=== PATIENT | female | born 1950 | race Caucasian/White ===

== ENCOUNTER 2017-12-11 20:08 | Observation (INO) ==
[2017-12-11] MEDS ORDERED: Metoclopramide 10 MG/2 ML VIAL IVP ONE (20:38)
[2017-12-11] MEDS ORDERED: 0.9 % Sodium Chloride 1,000 ML IVC ONE (20:38)
--- NOTE | 2017-12-11 20:49 | Emergency Department Note ---
Disposition Clinical Impression: Chest pain, rule out acute myocardial infarction Headache Qualifiers: Headache type: unspecified Headache chronicity pattern: acute headache Intractability: intractable Qualified Code(s): R51 - Headache Disposition: Admitted As Inpatient Condition: Good Time of Disposition: 20:52 Chest Pain HPI - General Chief Complaint: ED Chest Pain Stated Complaint: "chest heaviness", facial numbness x 24h, "ill" Time Seen by Provider: 12/11/17 20:21 Source: patient, EMS Limitations: no limitations Vital Signs Reviewed: Yes Nursing Notes Reviewed: Yes - History of Present Illness HPI Narrative: 67-year-old female brought to the emergency department for concerns of chest pain, headache. Patient states headache is been present over the past 3 days and is similar in intensity but different in location compared to her previous migraines. No recent trauma. Patient reports drooping of the right lower face as well as paresthesias of the right lower face over the past 24 hours. Daughter first noticed these symptoms yesterday evening but we do not have an exact time of onset. Patient is ambulating well and has no other focal neurologic deficits. Patient takes aspirin and Plavix after a coronary artery bypass graft many years ago, no history of stenting. Patient states she developed chest pain this morning which feels similar to chest pain prior to her coronary artery bypass graft. She states it as a pressure in the center of her chest that does not radiate. It is intermittently associated with diaphoresis but no nausea or shortness of breath. Patient has not syncopized. No changes in her medications. Severity scale (1-10): 10 - Related Data Home Medications Medication Instructions Recorded Confirmed Amlodipine [Norvasc] 5 mg PO DAILY 05/19/15 08/09/16 Clopidogrel [Plavix] 75 mg PO QAM 05/19/15 08/09/16 Escitalopram [Lexapro] 20 mg PO QAM 05/19/15 08/09/16 Levothyroxine [Synthroid] 50 mcg PO QAM 05/19/15 08/09/16 Doxepin [Sinequan] 50 mg PO HS 02/02/16 08/09/16 Fenofibrate [Lofibra] 160 mg PO DAILY 02/02/16 08/09/16 Furosemide [Lasix] 40 mg PO DAILY 02/02/16 08/09/16 Lisinopril [Zestril] 40 mg PO DAILY 02/02/16 08/09/16 Nitroglycerin 0.4 mg SL Q5MIN PRN 02/02/16 08/09/16 Omeprazole [PriLOSEC] 20 mg PO DAILY 02/02/16 08/09/16 Potassium Chloride 20 meq PO DAILY 02/02/16 08/09/16 clonazePAM [Klonopin] 1 mg PO TID 02/02/16 08/09/16 Atorvastatin [Lipitor] 80 mg PO HS 06/13/16 08/09/16 Cyanocobalamin (Vitamin B-12) 1,000 mcg PO DAILY 06/13/16 08/09/16 [Vitamin B12] HYDROcodone/Acet 5/325 mg [[place] 1 tab PO Q6H PRN 08/09/16 08/09/16 5-325 mg] Metoprolol [Lopressor] 50 mg PO BID 08/09/16 08/09/16 Ranolazine [Ranexa] 1,000 mg PO BID 08/09/16 08/09/16 Previous Rx's Medication Instructions Recorded Docusate [Colace] 100 mg PO BID PRN #0 capsule 06/15/16 OxyCODONE/APAP 5/325 [Percocet 1 each PO Q6HR PRN #16 tablet 10/06/16 5/325 MG] Ondansetron ODT [Zofran ODT] 4 mg SL Q6HR #14 tab.rapdis 11/16/16 Hyoscyamine SL [Levsin SL] 0.125 mg SL Q4HR #12 tab.subl 12/30/16 Allergies Allergy/AdvReac Type Severity Reaction Status Date / Time sumatriptan [From Imitrex] Allergy Severe Unconscious Verified 06/28/17 13:36 Penicillins Allergy Mild Hives Verified 06/28/17 13:36 morphine AdvReac Intermediate Insomnia Verified 06/28/17 13:36 tramadol AdvReac Intermediate Nausea Verified 06/28/17 13:36 ibuprofen AdvReac Mild See Verified 06/28/17 13:36 Comments ketorolac [From Toradol] AdvReac Mild Nausea Verified 06/28/17 13:36 All systems ED: reviewed and negative except as stated. Review of Systems: As Per HPI Chest Pain PMH - Past Medical History Medical history: Reports: coronary artery disease, GERD, hyperlipidemia, hypertension, myocardial infarction, renal disease, TIA, other Surgical history: Reports: angioplasty/stent, cholecystectomy, coronary bypass ( CABG), hysterectomy, knee replacement, other Psychiatric history: Reports: anxiety, depression, panic disorder, other [employer] history: Reports: non-contributory - Social History Smoking Status: Never smoker Alcohol use: Reports: none Drug use: Reports: none Physical Exam General: Alert and in no acute distress Skin: Warm, dry, intact Head: Normocephalic and atraumatic Neck: Supple, trachea midline and no tenderness Cardiovascular: RRR, no murmur, normal perfusion Respiratory: CTAB, no wheezing, cough, or respiratory distress Musculoskeletal: Normal strength, no tenderness, swelling or deformity GI: Soft, nontender, nondistended. Bowel sounds present Neuro: A&O to person, place, time and situation. Patient had subjective paresthesias to the right lower face otherwise there were no focal neurologic deficits noted on exam. Upper and lower extremities were equal strength at 5 out of 5 bilaterally. Psychiatric: cooperative and appropriate mood and affect. - General Limitations: no limitations General appearance: alert, in no apparent distress Course Vital Signs Temperature 98.1 F 12/11/17 20:11 Pulse Rate 79 12/11/17 20:11 Respiratory Rate 18 12/11/17 20:11 Blood Pressure 152/85 12/11/17 20:11 O2 Sat by Pulse Oximetry 100 12/11/17 20:11 Temperature 98.1 F 12/11/17 20:11 Pulse Rate 72 12/11/17 22:07 Respiratory Rate 16 12/11/17 22:07 Blood Pressure 134/78 12/11/17 22:07 O2 Sat by Pulse Oximetry 95 12/11/17 22:07 Oxygen Delivery Oxygen Delivery Room Air Chest Pain - MDM Narrative Medical decision making narrative: Patient will be admitted for further evaluation of her chest pain as she has high risk factors with heart score 5. Patient was given multiple medications for control of her headache without significant improvement. Patient states that the headache is different from her previous headaches and thus I am concerned for possible subarachnoid hemorrhage. CT of the head was negative for acute cranial hemorrhage or mass. I attempted a lumbar puncture after discussion of risks and benefits with the patient and obtaining verbal and written consent. I was unsuccessful in my lumbar puncture and patient refused further attempts. I spoke with Dr. Maldonado regarding the patient's case and presentation and my inability to completely rule out subarachnoid hemorrhage. He agreed with the plan for admission to the hospital for further evaluation of headache as well as chest pain and he will see her in the morning. Initial EKG showed normal sinus rhythm with a rate of 77 without evidence of STEMI or other evidence of ischemia. Initial troponin was negative. Patient comfortable with the plan for admission to hospital. - Medical Records Medical records reviewed: Yes I reviewed the patient's medical records. - Lab Data Lab results reviewed: Yes I reviewed the patient's lab results. Result diagrams: 12/11/17 20:45 12/11/17 20:45 Lab Results 12/11/17 12/11/17 12/11/17 Range/Units 20:45 20:45 20:45 WBC 4.9 (4.3-11.1) K/mcL RBC 4.25 (3.82-4.97) M/mcL Hgb 12.7 (11.5-15.4) g/dL Hct 38.9 (35.3-44.9) % MCV 91.5 (83.0-100.0) fL MCH 29.9 (28.0-33.3) pg MCHC 32.6 (31.6-35.5) g/dL RDW 14.3 (11.5-14.5) % Plt Count 327 (140-400) K/mcL MPV 9.9 (9.4-12.4) fL Immature Gran % 1.2 (0-4) % Seg Neutrophils % 53.5 % Lymphocytes % 30.8 % Monocytes % 12.7 % Eosinophils % 1.2 % Basophils % 0.6 % Neutrophils # 2.6 (1.6-8.9) K/mcL Lymphocytes # 1.5 (0.6-4.6) K/mcL Monocytes # 0.6 (0.0-1.3) K/mcL Eosinophils # 0.1 (0.0-0.6) K/mcL Basophils # 0.0 (0.0-0.2) K/mcL PT 11.8 (9.4-12.1) Seconds INR 1.1 APTT 32.6 (26.0-36.0) Seconds Sodium 138 (136-145) mEq/L Potassium 3.7 (3.5-5.1) mEq/L Chloride 108 H (98-107) mEq/L Carbon Dioxide 22 L (23-29) mEq/L BUN 12 (8-23) mg/dL Creatinine 0.89 (0.60-1.20) mg/dL Est GFR ( Amer) > 60 (> 60) Est GFR (Non-Af Amer) > 60 (> 60) BUN/Creatinine Ratio 13 (6-26) Glucose 105 (70-105) mg/dL Calculated Osmolality 286 (280-300) Calcium 9.3 (8.6-10.3) mg/dL Troponin I < 0.03 (< 0.04) ng/mL - Radiology Data Radiology results reviewed: Yes I reviewed the patient's radiology results. - EKG Data EKG attestation: Yes I reviewed and interpreted this EKG. EKG results narrative: ECG - interpreted by ED physician. Rate 77, normal sinus rhythm, no STEMI, ND, QT intervals, and QRS within normal limits Heart Score - Score History: Moderately Suspicious EKG: Normal Age: Greater than 65 Risk Factors: Equal/Greater than 3 risk factor or history of atherosclerotic disease Troponin: Less than normal limit HEART Score Total: 5
[2017-12-11 20:54] LABS: Basophils % 0.6 %; Eosinophils # 0.1 K/mcL (0.0-0.6); Eosinophils % 1.2 %; Hematocrit 38.9 % (35.3-44.9); Hemoglobin 12.7 g/dL (11.5-15.4); Immature Granulocytes % 1.2 % (0-4); Lymphocytes # 1.5 K/mcL (0.6-4.6); Lymphocytes % 30.8 %; Mean Corpuscular HGB Conc 32.6 g/dL (31.6-35.5); Mean Corpuscular Hemoglobin 29.9 pg (28.0-33.3); Mean Corpuscular Volume 91.5 fL (83.0-100.0); Mean Platelet Volume 9.9 fL (9.4-12.4); Monocytes # 0.6 K/mcL (0.0-1.3); Monocytes % 12.7 %; Neutrophils # 2.6 K/mcL (1.6-8.9); Platelet Count 327 K/mcL (140-400); Red Blood Count 4.25 M/mcL (3.82-4.97); Red Cell Distribution Width 14.3 % (11.5-14.5); Segmented Neutrophils % 53.5 %
[2017-12-11 20:59] LABS: INR 1.1; Prothrombin Time 11.8 Seconds (9.4-12.1)
[2017-12-11 21:02] LABS: Activated Partial Thrombo Time 32.6 Seconds (26.0-36.0)
[2017-12-11 21:23] LABS: Troponin I < 0.03 ng/mL (< 0.04)
[2017-12-11 21:25] LABS: BUN/Creatinine Ratio 13 (6-26); Blood Urea Nitrogen 12 mg/dL (8-23); Calcium 9.3 mg/dL (8.6-10.3); Carbon Dioxide 22 mEq/L (23-29); Chloride 108 mEq/L (98-107); Glucose 105 mg/dL (70-105); Osmolality,Calculated 286 (280-300); Potassium 3.7 mEq/L (3.5-5.1); Sodium 138 mEq/L (136-145); eGFR For African Americans > 60 (> 60); eGFR For Non-African Americans > 60 (> 60)
[2017-12-11] MEDS ORDERED: Acetaminophen/Butalbital/CaffeineTABLET PO STA (22:31)
[2017-12-11] MEDS ORDERED: Dexamethasone 4 MG/ML VIAL IVP ONE (22:31)
[2017-12-11] MEDS ORDERED: Aspirin 81 MG TAB.CHEW PO ONE (23:42)
[2017-12-11] MEDS ORDERED: diazePAM 10 MG/2 ML SYRINGE IVP ONE (23:56)
--- NOTE | 2017-12-11 23:59 | Internal Med History&Physical ---
Date of Encounter: 12/12/17 Time of Encounter: 23:55 Assessment and Plan (1) Chest pain, rule out acute myocardial infarction Current visit: Yes Status: Acute Persistent chest pain since the morning EKG is unremarkable troponin so far is negative will trend troponin and scheduled for nuclear stress test in a.m. (2) Headache Current visit: Yes Status: Acute Patient has history of migraine headache now with persistent headache for about 3 days or consult neurology for further evaluation CT of the head so far negative Qualifiers: Headache type: unspecified Headache chronicity pattern: acute headache Intractability: not intractable Qualified Code(s): R51 - Headache (3) CAD (coronary artery disease) Current visit: No Status: Chronic History of CABG Qualifiers: Coronary Disease-Associated Artery/Lesion type: [place] artery [place] vs. transplanted heart: [place] heart Associated angina: with unstable angina Qualified Code(s): I25.110 - Atherosclerotic heart disease of [place] coronary artery with unstable angina pectoris (4) HTN (hypertension) Current visit: No Status: Chronic Chronic and well controlled we will resume home medication Qualifiers: Hypertension type: essential hypertension Qualified Code(s): I10 - Essential (primary) hypertension (5) Hyperlipidemia Current visit: No Status: Chronic Chronic Qualifiers: Hyperlipidemia type: pure hypercholesterolemia Qualified Code(s): E78.00 - Pure hypercholesterolemia, unspecified; E78.0 - Pure hypercholesterolemia Internal Medicine - H&P: HPI Chief complaint: chest pain and headache Admitted From: Emergency Dept Plans for Post Hospital Care: Home History of present illness: Ms. Moreno is a 67 year old female Patient with history of CABG, last cardiac catheter May 2016 the graft was patent no intervention patient also history of hypertension, high cholesterol, GERD, TIA, anxiety and depression and migraine headaches. Patient presented emergency room she has had 3 days of headache says her usual migraine but been persistent for about 3 days and this morning she developed her chest pain describes a pressure persistent that sometimes get worse with some diaphoresis no radiation no nausea and decided to come to the emergency room. She be given multiple medication for her headaches the EKG is unremarkable troponin so far is negative Dr. Maldonado neurology was contacted and stated that he will see patient in the morning. CT of head was negative Past Med Surg Social Fam HX - Past Medical History Medical history: coronary artery disease, GERD, hyperlipidemia, hypertension, myocardial infarction, renal disease, TIA, other Psychiatric history: anxiety, depression, panic disorder, other - Past Surgical History Surgical History: angioplasty/stent, cholecystectomy, coronary bypass (CABG), hysterectomy, knee replacement, other - Social History Smoking Status: Never smoker Smokeless Tobacco Status: No Alcohol use: none Drug use: none - Family History Father Adopted: No Family Member Ethnicity: Non- Living Status: Hx Family Cardiac Disorders: Yes (3 CVA, HLD) Hx Family Respiratory Disorders: No Hx Family Cancer: No Hx Family GI Disorders: No Hx Family Endocrine Disorder: No Hx Family Neuromuscular Disorders: No Hx Family Neurologic Disorders: No Hx Family HEENT Disorders: No Hx Family Autoimmune Disorders: No Internal Medicine - H&P: Meds Amlodipine [Norvasc] 5 mg PO DAILY 05/19/15 [History] Clopidogrel [Plavix] 75 mg PO QAM 05/19/15 [History] Escitalopram [Lexapro] 20 mg PO QAM 05/19/15 [History] Levothyroxine [Synthroid] 50 mcg PO QAM 05/19/15 [History] Doxepin [Sinequan] 50 mg PO HS 02/02/16 [History] Fenofibrate [Lofibra] 160 mg PO DAILY 02/02/16 [History] Furosemide [Lasix] 40 mg PO DAILY 02/02/16 [History] Lisinopril [Zestril] 40 mg PO DAILY 02/02/16 [History] Nitroglycerin 0.4 mg SL Q5MIN PRN 02/02/16 [History] Omeprazole [PriLOSEC] 20 mg PO DAILY 02/02/16 [History] Potassium Chloride 20 meq PO DAILY 02/02/16 [History] clonazePAM [Klonopin] 1 mg PO TID 02/02/16 [History] Atorvastatin [Lipitor] 80 mg PO HS 06/13/16 [History] Cyanocobalamin (Vitamin B-12) [Vitamin B12] 1,000 mcg PO DAILY 06/13/16 [History ] Docusate [Colace] 100 mg PO BID PRN #0 capsule 06/15/16 [Rx] HYDROcodone/Acet 5/325 mg [[place] 5-325 mg] 1 tab PO Q6H PRN 08/09/16 [History] Metoprolol [Lopressor] 50 mg PO BID 08/09/16 [History] Ranolazine [Ranexa] 1,000 mg PO BID 08/09/16 [History] OxyCODONE/APAP 5/325 [Percocet 5/325 MG] 1 each PO Q6HR PRN #16 tablet 10/06/16 [Rx] Ondansetron ODT [Zofran ODT] 4 mg SL Q6HR #14 tab.rapdis 11/16/16 [Rx] Hyoscyamine SL [Levsin SL] 0.125 mg SL Q4HR #12 tab.subl 12/30/16 [Rx] 3 Allergy/AdvReac Type Severity Reaction Status Date / Time sumatriptan [From Imitrex] Allergy Severe Unconscious Verified 06/28/17 13:36 Penicillins Allergy Mild Hives Verified 06/28/17 13:36 morphine AdvReac Intermediate Insomnia Verified 06/28/17 13:36 tramadol AdvReac Intermediate Nausea Verified 06/28/17 13:36 ibuprofen AdvReac Mild See Verified 06/28/17 13:36 Comments ketorolac [From Toradol] AdvReac Mild Nausea Verified 06/28/17 13:36 All Systems PM: A 10-system review of systems was performed and is negative for pertinent findings except as documented above in the HPI. - Constitutional Vitals: Temp Pulse Resp BP Pulse Ox 98.1 F 72 16 134/78 95 12/11/17 20:11 12/11/17 22:07 12/11/17 22:07 12/11/17 22:07 12/11/17 22:07 General appearance: Present: mild distress - Eye Eye exam: Present: PERRL, conjuntiva pink, sclera anicteric Pupils: Present: PERRL - Neck Neck exam general surgery: Present: supple, trachea midline. Absent: lymphadenopathy - Respiratory Respiratory exam: Present: CTAB. Absent: accessory muscle use, rales, rhonchi, wheezes - Cardiovascular Cardiovascular exam: Present: RRR, +S1, +S2. Absent: diastolic murmur, gallop, rubs, systolic murmur - GI/Abdominal GI/Abdominal exam: Present: normal bowel sounds, soft, no peritoneal signs. Absent: distended, tenderness - Extremities Exam Extremities exam: Present: warm, radial pulses palpable and symmetrical. Absent : calf tenderness, cyanotic, pedal edema Internal Med - H&P Results - Labs CBC & Chem 7: 12/11/17 20:45 12/11/17 20:45 Labs: Short CBC 12/11/17 Range/Units 20:45 WBC 4.9 (4.3-11.1) K/mcL Hgb 12.7 (11.5-15.4) g/dL Hct 38.9 (35.3-44.9) % Plt Count 327 (140-400) K/mcL Neutrophils # 2.6 (1.6-8.9) K/mcL BMP 12/11/17 20:45 Sodium 138 Potassium 3.7 Chloride 108 H Carbon Dioxide 22 L BUN 12 Creatinine 0.89 Glucose 105 Calcium 9.3 Cardiac Enzymes 12/11/17 Range/Units 20:45 Troponin I < 0.03 (< 0.04) ng/mL - Impressions ITS Impressions Chest X-Ray 12/11/17 20:37 IMPRESSION: No acute cardiopulmonary disease. D/ / 12/11/2017 21:14:47 Amos Walker MD / Rachel Tesfaye Interpreting Provider: Amos Walker MD Head CT 12/11/17 20:38 IMPRESSION: No acute intracranial abnormality. D/ / 12/11/2017 21:11:39 Amos Walker MD / Rachel Tesfaye Interpreting Provider: Amos Walker MD
[2017-12-12] MEDS ORDERED: Naloxone 0.4 MG/ML INJ IVP PRN (00:03)
[2017-12-12] MEDS ORDERED: traMADol 50 MG TABLET PO PRN (00:03)
[2017-12-12] MEDS ORDERED: Acetaminophen 325 MG TABLET PO PRN (00:03)
[2017-12-12] MEDS: *HR* OxyCODONE/APAP 7.5/325 TABLET PO PRN ×3 (00:56→18:41)
[2017-12-12] MEDS: 0.9 % Sodium Chloride 1,000 ML IVC SCH ×2 (01:25→18:40)
[2017-12-12 02:31] LABS: Alanine Aminotransferase 24 Units/L (7-52); Albumin 4.4 g/dL (3.5-5.7); Albumin/Globulin Ratio 1.8 (1.1-2.2); Alkaline Phosphatase 39 Units/L (34-104); Aspartate Amino Transferase 22 Units/L (13-39); BUN/Creatinine Ratio 13 (6-26); Bilirubin,Total 0.4 mg/dL (0.3-1.0); Blood Urea Nitrogen 11 mg/dL (8-23); Calcium 9.1 mg/dL (8.6-10.3); Carbon Dioxide 21 mEq/L (23-29); Chloride 108 mEq/L (98-107); Chol/HDL Ratio 6.3 (0-4.9); Cholesterol 232 mg/dL (< 200); Globulin 2.4 g/dL (2.4-3.5); Glucose 110 mg/dL (70-105); HDL Cholesterol 37 mg/dL (40-59); LDL Cholesterol,Calculated 131 mg/dL (0-99); Magnesium 2.4 mg/dL (1.6-2.6); Osmolality,Calculated 288 (280-300); Potassium 3.6 mEq/L (3.5-5.1); Sodium 139 mEq/L (136-145); Total Protein 6.8 g/dL (6.4-8.9); Triglycerides 321 mg/dL (< 150); eGFR For African Americans > 60 (> 60); eGFR For Non-African Americans > 60 (> 60)
[2017-12-12] MEDS ORDERED: Regadenoson 0.4 MG/5 ML SYRINGE IVP ONE (05:37)
[2017-12-12] MEDS: *HR* HYDROcodone/Acet 5/325 mg TABLET PO PRN ×3 (05:55→21:43)
--- NOTE | 2017-12-12 09:10 | Neurology - Consult Note ---
<Salvador Mercado - Last Filed: 12/12/17 13:09> Date of Encounter: 12/12/17 Time of Encounter: 10:57 Assessment and Plan (1) Analgesic overuse headache Current Visit: Yes Status: Acute Patient likely has analgesic overuse headache. She takes percocet for chronic low back pain starting about six months ago her current headache is different from her pervious migraines as described in HPI she was given reglan, benadryl, decadron in ER without any help reports her headache is persistent rated 8/10 neuro exam non-focal non-lateralizing Ct head negative Facial drooping and dysarthria, right upper lip facial numbness experienced by patient likely 2nd to headache and not seen on exam. recommend: decrease in narcotic usage. order compazine IV (2) CAD (coronary artery disease) Current Visit: No Status: Chronic Qualifiers: Coronary Disease-Associated Artery/Lesion type: [place] artery [place] vs. transplanted heart: [place] heart Associated angina: with unstable angina Qualified Code(s): I25.110 - Atherosclerotic heart disease of [place] coronary artery with unstable angina pectoris (3) Chest pain Current Visit: Yes Status: Acute as per primary Qualifiers: Chest pain type: other chest pain Qualified Code(s): R07.89 - Other chest pain; R07.8 - Other chest pain (4) HTN (hypertension) Current Visit: Yes Status: Chronic controlled. continue home medication Qualifiers: Hypertension type: essential hypertension Qualified Code(s): I10 - Essential (primary) hypertension (5) Hyperlipidemia Current Visit: Yes Status: Chronic uncontrolled Total cholesterol 232 LDL 131 Goal is <70 Patient already on high dose statin and fibrate. Recommend education on low fat low cholesterol diet. Follow up with PCP. Qualifiers: Hyperlipidemia type: pure hypercholesterolemia Qualified Code(s): E78.00 - Pure hypercholesterolemia, unspecified; E78.0 - Pure hypercholesterolemia History of Present Illness Chief complaint: chest pain, headache HPI: Ms. Moreno is a 67 year old female presents with chief complaint of chest pain and headache. Patient has a history of coronary artery disease, myocardial infarction, TIA, hyperlipidemia. Patient's chest pain started yesterday morning described as pressure with radiation to the left neck and has been constant and currently she still has some chest pressure. Patient denied exertional component with chest pressure. Along with this she had episode of shortness of breath, diaphoresis. She denies palpitation, vision changes, syncope, weakness, difficulty swallowing, changes in vision, changes in hearing. Patient also reports having a headache for the last 3 days. She describes this headache as throbbing, located in bilateral frontal temporal lobes and radiating to the back. She reported some dizziness when her headache started 3 days ago but this has not resolved. She denied nausea, vomiting, photophobia. She reported photophobia. Patient reports she has a history of migraines but they are usually unilateral and associated nausea and vomiting. This headache is different. She takes Cascade at home for low back pain but patient reports this did not help with her headache. Patient reports noticing right facial drooping and dysarthria and also right upper lip numbness yesterday and states this was seen by her daughter as well. CT of the head was negative for bleed or mass. Past Med Surg Social Fam HX - Past Medical History Medical history: coronary artery disease, GERD, hyperlipidemia, hypertension, myocardial infarction, renal disease, TIA, other Psychiatric history: anxiety, depression, panic disorder, other - Past Surgical History Surgical History: angioplasty/stent, cholecystectomy, coronary bypass (CABG), hysterectomy, knee replacement, other - Social History Smoking Status: Never smoker Smokeless Tobacco Status: No Alcohol use: none Drug use: none - Family History Mother Living Status: Hx Family Cancer: Yes (colon and breast) Father Adopted: No Family Member Ethnicity: Non- Living Status: Hx Family Cardiac Disorders: Yes Hx Family Respiratory Disorders: No Hx Family Cancer: No Hx Family GI Disorders: No Hx Family Endocrine Disorder: No Hx Family Neuromuscular Disorders: No Hx Family Neurologic Disorders: No Hx Family HEENT Disorders: No Hx Family Autoimmune Disorders: No Medications and Allergies Amlodipine [Norvasc] 5 mg PO DAILY 05/19/15 [History] Clopidogrel [Plavix] 75 mg PO QAM 05/19/15 [History] Escitalopram [Lexapro] 20 mg PO QAM 05/19/15 [History] Levothyroxine [Synthroid] 50 mcg PO QAM 05/19/15 [History] Fenofibrate [Lofibra] 160 mg PO DAILY 02/02/16 [History] Furosemide [Lasix] 40 mg PO DAILY 02/02/16 [History] Lisinopril [Zestril] 40 mg PO DAILY 02/02/16 [History] Omeprazole [PriLOSEC] 20 mg PO DAILY 02/02/16 [History] Potassium Chloride 20 meq PO DAILY 02/02/16 [History] clonazePAM [Klonopin] 1 mg PO TID 02/02/16 [History] Atorvastatin [Lipitor] 80 mg PO HS 06/13/16 [History] Docusate [Colace] 100 mg PO BID PRN #0 capsule 06/15/16 [Rx] Metoprolol [Lopressor] 100 mg PO BID 08/09/16 [History] Ranolazine [Ranexa] 1,000 mg PO BID 08/09/16 [History] Nitroglycerin [Nitrolingual] 1 spr SL Q5M PRN 12/12/17 [History] OxyCODONE/APAP 7.5/325 [Percocet 7.5/325 MG] 1 - 2 tab PO Q6HR PRN 12/12/17 [ History] 3 Allergy/AdvReac Type Severity Reaction Status Date / Time sumatriptan [From Imitrex] Allergy Severe Unconscious Verified 06/28/17 13:36 Penicillins Allergy Mild Hives Verified 06/28/17 13:36 morphine AdvReac Intermediate Insomnia Verified 06/28/17 13:36 tramadol AdvReac Intermediate Nausea Verified 06/28/17 13:36 ibuprofen AdvReac Mild See Verified 06/28/17 13:36 Comments ketorolac [From Toradol] AdvReac Mild Nausea Verified 06/28/17 13:36 All Systems: The remainder of the systems were reviewed and are negative Review of Systems: Constitutional: Denies fever, chills HEENT: Reports headache. Denies vision changes, neck pain, sore throat, rhinorrhea Heart: Reports chest pressure. Denies palpitations Lungs: Reports shortness of breath, denies cough Abdomen: Denies abdominal pain nausea vomiting diarrhea Back: Reports chronic back pain, Kidney: Denies dysuria, hematuria Skin: warm and dry Extremities: Denies swelling, reports bilateral shoulder pain Neuro: As per history of present illness Physical Examination - Vital Signs Vital Signs: Initial Vital Signs Temp Pulse Resp BP Pulse Ox 98.1 F 79 18 152/85 100 12/11/17 20:11 12/11/17 20:11 12/11/17 20:11 12/11/17 20:11 12/11/17 20:11 - Exam Exam: General: Pleasant without distress HEENT: Head atraumatic, normocephalic, EOMI, PERRL, neck nontender to palpation , absent lymphadenopathy, Moist Mucous Membranes, Heart: Regular rate and rhythm with no murmur, sternal scar secondary to CABG Lungs: Clear to auscultation bilaterally Abdomen: Soft nontender, nondistended positive bowel sounds Skin: warm and dry Extremities: Absent pedal edema, bilateral knee replacements Vascular: Pedal and radial pulses 2 out of 4 - Neurologic Sensorimotor examination: intact Detailed motor examination: grossly full strength in all extremities Motor examination - right side: 4/5: deltoids, biceps, triceps, wrist flexion, wrist extension, planograph operator, hip flexors, tibialis Anterior, quadriceps, toe extension (EHL), plantarflexion Motor examination - left side: 5/5: deltoids, biceps, triceps, wrist flexion, wrist extension, hip flexors, planograph operator, quadriceps, tibialis Anterior, toe extension (EHL), plantarflexion Detailed sensory examination: intact Reflex and gait examination: intact Reflexes: Biceps: 3+, Triceps: 3+, Brachioradialis: 3+, Patella: 3+, Achilles: 3 + Mental Status Examination: awake, alert, oriented to person, oriented to place, oriented to time, follows commands appropriately, answers questions appropriately, no agnosia, no aphasia, no aproxia Cranial nerve examination: PERRL, EOMI, visual vargas intact, sensory to face intact, mastication intact, no facial asymmetry is present, no dysarthria, hearing is intact symmetrically, soft palate elevates bilaterally upon phonation , flexes SCM and trapezius muscles symmetrically with full power, tongue protrudes midline, no atrophy or facial fasiculations present Cerebellar examination: no dysmetria, performs finger to nose and heel to rodriguez symmetrically without ataxia, no gait ataxia, no truncal ataxia, no difficulty with rapid alternating movements Results - Laboratory Findings CBC and BMP: 12/11/17 20:45 12/12/17 00:42 Abnormal lab findings: Abnormal lab results Chloride 108 mEq/L (98-107) H 12/12/17 00:42 Carbon Dioxide 21 mEq/L (23-29) L 12/12/17 00:42 Glucose 110 mg/dL (70-105) H 12/12/17 00:42 Triglycerides 321 mg/dL (< 150) H 12/12/17 00:42 Cholesterol 232 mg/dL (< 200) H 12/12/17 00:42 LDL Cholesterol, Calc 131 mg/dL (0-99) H 12/12/17 00:42 VLDL Cholesterol, Calc 64 mg/dL (< 31) H 12/12/17 00:42 HDL Cholesterol 37 mg/dL (40-59) L 12/12/17 00:42 Cholesterol/HDL Ratio 6.3 (0-4.9) H 12/12/17 00:42 Consult Discharge Plan - Plan Referrals: Mk Redding, PAC [Primary Care Provider] - <Ravin Maldonado - Last Filed: 12/12/17 16:55> Date of Encounter: 12/12/17 Assessment and Plan (1) Analgesic overuse headache Current Visit: Yes Status: Acute I suspect that this patient more than likely experienced a complicated migraine. It is not unusual for some migraine triggers to experience focal findings during the headache. At this time her neurologic examination is normal. The weakness that she has I believe is due to previous surgeries and mechanical etiologies. I find no evidence of an acute infarct. CT scan of the brain was negative. I am also doubtful of a cerebral aneurysm. I will however obtain an MRI/MRA to further assess. If the MRI/MRA scans are negative, you may discharge her at your discretion. History of Present Illness HPI: The chart was reviewed, patient was seen and examined independently. Case was discussed with the internal medicine resident on service. I agree with his assessment and documentation as stated above. All Systems: The remainder of the systems were reviewed and are negative Review of Systems: Agree with the review of systems as stated above. Physical Examination - Vital Signs Vital Signs: Initial Vital Signs Temp Pulse Resp BP Pulse Ox 98.1 F 79 18 152/85 100 12/11/17 20:11 12/11/17 20:11 12/11/17 20:11 12/11/17 20:11 12/11/17 20:11 - Exam Exam: I agree with the neurologic examination as documented. Results - Laboratory Findings CBC and BMP: 12/11/17 20:45 12/12/17 00:42 Abnormal lab findings: Abnormal lab results Chloride 108 mEq/L (98-107) H 12/12/17 00:42 Carbon Dioxide 21 mEq/L (23-29) L 12/12/17 00:42 Glucose 110 mg/dL (70-105) H 12/12/17 00:42 Triglycerides 321 mg/dL (< 150) H 12/12/17 00:42 Cholesterol 232 mg/dL (< 200) H 12/12/17 00:42 LDL Cholesterol, Calc 131 mg/dL (0-99) H 12/12/17 00:42 VLDL Cholesterol, Calc 64 mg/dL (< 31) H 12/12/17 00:42 HDL Cholesterol 37 mg/dL (40-59) L 12/12/17 00:42 Cholesterol/HDL Ratio 6.3 (0-4.9) H 12/12/17 00:42
[2017-12-12] MEDS: Ranolazine 500 MG TAB.ER.12H PO SCH ×2 (09:26→21:39)
[2017-12-12] MEDS: Fenofibrate 54 MG TABLET PO SCH (09:27)
[2017-12-12] MEDS: Metoprolol 100 MG TABLET PO SCH ×2 (09:27→21:38)
[2017-12-12] MEDS: Lisinopril 20 MG TABLET PO SCH (09:27)
[2017-12-12] MEDS: clonazePAM 1 MG TABLET PO SCH ×3 (09:27→21:39)
[2017-12-12] MEDS: amLODIPine 5 MG TABLET PO SCH (09:29)
[2017-12-12] MEDS ORDERED: Prochlorperazine 10 MG/2 ML VIAL IVP ONE (13:19)
[2017-12-12] MEDS ORDERED: Prochlorperazine 10 MG/2 ML VIAL IVP PRN ×2 (13:40→17:49)
--- NOTE | 2017-12-12 17:53 | Internal Med Progress Note ---
Date of Encounter: 12/12/17 Time of Encounter: 17:50 - Assessment and plan (1) Analgesic overuse headache Current Visit: Yes Status: Acute Assessment and plan: Neuro following and recommended Compazine IV to treat the headache and avoid narcotics. Dr. Maldonado stated when headache is consistently around 2 out of a 10 scale she can be discharged if MRI is negative (2) Chest pain Current Visit: Yes Status: Acute Assessment and plan: Troponins negative 3 EKG unremarkable Nuclear stress test negative for ischemia or infarct Qualifiers: Chest pain type: other chest pain Qualified Code(s): R07.89 - Other chest pain; R07.8 - Other chest pain (3) HTN (hypertension) Current Visit: Yes Status: Chronic Assessment and plan: Blood pressure is stable, continue home medications Qualifiers: Hypertension type: essential hypertension Qualified Code(s): I10 - Essential (primary) hypertension (4) Hyperlipidemia Current Visit: Yes Status: Chronic Assessment and plan: Continue statin Qualifiers: Hyperlipidemia type: pure hypercholesterolemia Qualified Code(s): E78.00 - Pure hypercholesterolemia, unspecified; E78.0 - Pure hypercholesterolemia - Time Spent With Patient Total time spent is greater than 50% in coordination of care (as documented) at patient's floor/unit and/or counseling patient: - Subjective Interval history: Lying in bed in no acute distress. She states her headache is about a 2 out of a 10 scale at this time. She denies any chest pain or nor O type symptoms. Her respirations are unlabored and she denies fever chills nausea vomiting or abdominal pain. She is awaiting MRI - Constitutional Vitals: Temp Pulse Resp BP Pulse Ox 98.1 F 67 16 110/68 97 12/12/17 14:45 12/12/17 14:45 12/12/17 14:45 12/12/17 14:45 12/12/17 14:45 General appearance: Present: cooperative, A&O X 3, pleasant, obese, answers questions appropriately - Head Head exam: Present: atraumatic, normocephalic - Eye Eye exam: Present: PERRL, conjuntiva pink, sclera anicteric Pupils: Present: PERRL - Neck Neck exam general surgery: Present: supple, trachea midline. Absent: lymphadenopathy - Respiratory Respiratory exam: Present: CTAB. Absent: accessory muscle use, rales, rhonchi, wheezes - Cardiovascular Cardiovascular exam: Present: RRR, +S1, +S2. Absent: diastolic murmur, gallop, rubs, systolic murmur - GI/Abdominal GI/Abdominal exam: Present: normal bowel sounds, soft, no peritoneal signs. Absent: distended, tenderness - Extremities Exam Extremities exam: Present: warm, radial pulses palpable and symmetrical. Absent : calf tenderness, cyanotic, pedal edema - Neurological Exam Neurological exam: Present: alert, CN II-XII intact, oriented X3, no focal deficits. Absent: pronater drift, facial droop, speech deficit - Skin Skin exam: Present: dry, warm Additional comments: Raised red rash in different stages of healing and scratches scattered over extremities. She states this is due to an allergic reaction of unknown origin that she has breakouts twice a year. Internal Medicine: Result - Labs CBC & Chem 7: 12/11/17 20:45 12/12/17 00:42 Labs: BMP 12/12/17 00:42 Sodium 139 Potassium 3.6 Chloride 108 H Carbon Dioxide 21 L BUN 11 Creatinine 0.85 Glucose 110 H Calcium 9.1 Cardiac Enzymes 12/12/17 12/12/17 Range/Units 00:42 05:59 Troponin I < 0.03 < 0.03 (< 0.04) ng/mL Liver Function 12/12/17 Range/Units 00:42 Total Bilirubin 0.4 (0.3-1.0) mg/dL AST 22 (13-39) Units/L ALT 24 (7-52) Units/L Alkaline Phosphatase 39 (34-104) Units/L Albumin 4.4 (3.5-5.7) g/dL - ABG Interpretation ABG results: PT/INR, D-dimer PT 11.8 Seconds (9.4-12.1) 12/11/17 20:45 Consult Discharge Plan - Plan Referrals: Mk Redding, PAC [Primary Care Provider] -
[2017-12-13] MEDS: *HR* OxyCODONE/APAP 7.5/325 TABLET PO PRN ×2 (00:43→09:03)
[2017-12-13 04:58] LABS: Basophils % 0.1 %; Eosinophils % 0.1 %; Hematocrit 31.9 % (35.3-44.9); Immature Granulocytes % 0.9 % (0-4); Lymphocytes # 1.3 K/mcL (0.6-4.6); Lymphocytes % 17.3 %; Mean Corpuscular HGB Conc 32.3 g/dL (31.6-35.5); Mean Corpuscular Hemoglobin 29.9 pg (28.0-33.3); Mean Corpuscular Volume 92.5 fL (83.0-100.0); Mean Platelet Volume 10.4 fL (9.4-12.4); Monocytes # 0.9 K/mcL (0.0-1.3); Monocytes % 11.7 %; Neutrophils # 5.3 K/mcL (1.6-8.9); Platelet Count 310 K/mcL (140-400); Red Blood Count 3.45 M/mcL (3.82-4.97); Red Cell Distribution Width 14.4 % (11.5-14.5); Segmented Neutrophils % 69.9 %
[2017-12-13 05:01] LABS: Hemoglobin 10.3 g/dL (11.5-15.4)
[2017-12-13 05:25] LABS: BUN/Creatinine Ratio 16 (6-26); Blood Urea Nitrogen 14 mg/dL (8-23); Calcium 8.5 mg/dL (8.6-10.3); Carbon Dioxide 24 mEq/L (23-29); Chloride 110 mEq/L (98-107); Glucose 160 mg/dL (70-105); Osmolality,Calculated 290 (280-300); Potassium 4.2 mEq/L (3.5-5.1); Sodium 138 mEq/L (136-145); eGFR For African Americans > 60 (> 60); eGFR For Non-African Americans > 60 (> 60)
[2017-12-13] MEDS: *HR* HYDROcodone/Acet 5/325 mg TABLET PO PRN (05:57)
--- NOTE | 2017-12-13 08:04 | Neurology Progress Note ---
<Salvador Mercado - Last Filed: 12/13/17 09:18> Date of Encounter: 12/13/17 Time of Encounter: 09:18 Assessment and Plan (1) Analgesic overuse headache Status: Acute Patient likely has analgesic overuse headache, complicated migraine. MRI/MRA negative for aneurysm or acute neurological changes. Plan: Patient should decrease her use of Percocet. Followup with PCP for management of pain. Patient may use compazine for her migraines. She is unable to use triptans due to her CAD and NSAIDS due to hx of CESAR 2nd to nsaids. Subjective Principal diagnosis: headache Interval history: Patients headache has improved today. Reports intensity as 1/10. She denies any other complaints. Objective - Constitutional Vitals: Temp Pulse Resp BP Pulse Ox 99.2 F 59 16 120/61 95 12/13/17 07:13 12/13/17 07:13 12/13/17 07:13 12/13/17 07:13 12/13/17 07:13 - Neurological Exam Sensorimotor examination: Present: intact Motor Examination: Present: grossly full strength in all extremities Motor examination - right side: 5/5: deltoids, biceps, triceps, wrist flexion, wrist extension, road freight brake coupler, hip flexors, tibialis Anterior, quadriceps, toe extension (EHL), plantarflexion Motor examination - left side: 5/5: deltoids, biceps, triceps, wrist flexion, wrist extension, hip flexors, road freight brake coupler, quadriceps, tibialis Anterior, toe extension (EHL), plantarflexion Sensation intact: Present: intact Reflex and gait examination: intact Reflexes: Biceps: 2+, Triceps: 2+, Brachioradialis: 2+, Patella: 2+, Achilles: 2 + Mental Status Examination: Present: awake, alert, oriented to person, oriented to place, oriented to time, follows commands appropriately, answers questions appropriately, no agnosia, no aphasia, no aproxia Cranial nerve examination: Present: PERRL, EOMI, visual vargas intact, sensory to face intact, mastication intact, no facial asymmetry is present, no dysarthria, hearing is intact symmetrically, soft palate elevates bilaterally upon phonation, flexes SCM and trapezius muscles symmetrically with full power, tongue protrudes midline, no atrophy or facial fasiculations present Cerebellar examination: Present: no dysmetria, performs finger to nose and heel to rodriguez symmetrically without ataxia, no gait ataxia, no truncal ataxia, no difficulty with rapid alternating movements - Other Additional findings: General: without distress Heart: Regular rate and rhythm with no murmur Lungs: Clear to auscultation bilaterally Abdomen: Soft nontender, nondistended positive bowel sounds Skin: warm and dry Extremities: Absent pedal edema, Vascular: Pedal and radial pulses 2 out of 4 Results - Laboratory Findings CBC and BMP: 12/13/17 04:45 12/13/17 04:45 Abnormal lab findings: Abnormal lab results RBC 3.45 M/mcL (3.82-4.97) L 12/13/17 04:45 Hgb 10.3 g/dL (11.5-15.4) L D 12/13/17 04:45 Hct 31.9 % (35.3-44.9) L 12/13/17 04:45 Chloride 110 mEq/L (98-107) H 12/13/17 04:45 Glucose 160 mg/dL (70-105) H 12/13/17 04:45 Calcium 8.5 mg/dL (8.6-10.3) L 12/13/17 04:45 Triglycerides 321 mg/dL (< 150) H 12/12/17 00:42 Cholesterol 232 mg/dL (< 200) H 12/12/17 00:42 LDL Cholesterol, Calc 131 mg/dL (0-99) H 12/12/17 00:42 VLDL Cholesterol, Calc 64 mg/dL (< 31) H 12/12/17 00:42 HDL Cholesterol 37 mg/dL (40-59) L 12/12/17 00:42 Cholesterol/HDL Ratio 6.3 (0-4.9) H 12/12/17 00:42 Consult Discharge Plan - Plan Instructions: Chest Pain (DC), Chronic Hypertension (DC) Additional Instructions: Follow-up appointments: If there is not an appointment listed below, please call your physician and schedule a follow-up appointment. If you have congestive heart failure and your symptoms return, make an appointment with your physician. Medication List: Carry an up to date list of medications you are taking at all time. We have given you an updated medication list including any new medications that you have been prescribed. Please provide that list to your primary provider Symptoms: If your condition changes or you experience any of the following symptoms, notify your physician immediately: Unusual or worsening pain, fever, persistent nausea and vomiting, bleeding, increase in swelling (especially in your legs), sudden weight gain, extreme dizziness, chest pain, increased drainage or redness from a wound or incision. Go to the emergency department if you experience a problem with breathing. Weights: If you have a history of swelling or shortness of breath, weigh yourself daily and notify your physician if you have a weight gain of two or more pounds in one day or 5 or more pounds in a week. If you experience any of the warning signs for stroke: Sudden numbness or weakness of the face, arm or leg; especially on one side of the body, sudden confusion, trouble speaking or understanding, sudden trouble seeing in one or both eyes, sudden trouble walking, dizziness, loss of balance or coordination, sudden sever headache with no cause; Call 911 or go to the emergency room. Stroke is a medical emergency. Some risk factors for stroke: Age, cigarette smoking, diabetes, excessive alcohol consumption, family history , high blood pressure, overweight, physical inactivity, prior stroke, heart attack, diagnosis of carotid artery stenosis or other artery disease. If you smoke, STOP: Smoking or tobacco use significantly increases your risk of heart and lung disease. Your chance of disease greatly increases if you continue to smoke. For more information, call the [place] tobacco quit line for smoking cessation -NOW ( ) Referrals: Mk Redding, PAC [Primary Care Provider] - (We left a message for the office to call you with an appointment time and day. ) Oswald Cash DO [Partnered Physician] - 12/29/17 11:00 am (This is with Andrzej Lyn) <Ravin Maldonado - Last Filed: 12/13/17 16:05> Date of Encounter: 12/13/17 Assessment and Plan (1) Analgesic overuse headache Status: Acute Agree with above. neurologic work up otherwise negative. Behzad f/u as necessary in office. Subjective Interval history: As above. Pt essentially headache landry, back to her baseline status. Objective - Constitutional Vitals: Temp Pulse Resp BP Pulse Ox 98.8 F 57 16 111/58 96 12/13/17 11:02 12/13/17 11:02 12/13/17 11:02 12/13/17 11:02 12/13/17 11:02 Results - Laboratory Findings CBC and BMP: 12/13/17 04:45 12/13/17 04:45 Abnormal lab findings: Abnormal lab results RBC 3.45 M/mcL (3.82-4.97) L 12/13/17 04:45 Hgb 10.3 g/dL (11.5-15.4) L D 12/13/17 04:45 Hct 31.9 % (35.3-44.9) L 12/13/17 04:45 Chloride 110 mEq/L (98-107) H 12/13/17 04:45 Glucose 160 mg/dL (70-105) H 12/13/17 04:45 Calcium 8.5 mg/dL (8.6-10.3) L 12/13/17 04:45 Triglycerides 321 mg/dL (< 150) H 12/12/17 00:42 Cholesterol 232 mg/dL (< 200) H 12/12/17 00:42 LDL Cholesterol, Calc 131 mg/dL (0-99) H 12/12/17 00:42 VLDL Cholesterol, Calc 64 mg/dL (< 31) H 12/12/17 00:42 HDL Cholesterol 37 mg/dL (40-59) L 12/12/17 00:42 Cholesterol/HDL Ratio 6.3 (0-4.9) H 12/12/17 00:42
[2017-12-13] MEDS: Fenofibrate 54 MG TABLET PO SCH (09:03)
[2017-12-13] MEDS: amLODIPine 5 MG TABLET PO SCH (09:04)
[2017-12-13] MEDS: Lisinopril 20 MG TABLET PO SCH (09:04)
[2017-12-13] MEDS: clonazePAM 1 MG TABLET PO SCH (09:04)
[2017-12-13] MEDS: Metoprolol 100 MG TABLET PO SCH (09:04)
[2017-12-13] MEDS: Ranolazine 500 MG TAB.ER.12H PO SCH (09:08)
[2017-12-13 11:04] VITALS: BP 111/58
--- NOTE | 2017-12-13 14:03 | Discharge Summary ---
- NOTES TO OUTPATIENT PROVIDER Notes to Outpatient Provider: Pain managment referal may benefit this patient Orders not resulted at time of discharge: Pending orders 12/12/17 00:06 NM elise perf SPECT multi [NM] Routine Date of Encounter: 12/13/17 Time of Encounter: 13:59 - Discharge Diagnosis (1) HTN (hypertension) Priority: Secondary Status: Chronic Qualifiers: Hypertension type: essential hypertension Qualified Code(s): I10 - Essential (primary) hypertension (2) Hyperlipidemia Priority: Secondary Status: Chronic Qualifiers: Hyperlipidemia type: pure hypercholesterolemia Qualified Code(s): E78.00 - Pure hypercholesterolemia, unspecified; E78.0 - Pure hypercholesterolemia (3) Chest pain Priority: Primary Status: Acute Qualifiers: Chest pain type: other chest pain Qualified Code(s): R07.89 - Other chest pain; R07.8 - Other chest pain (4) Analgesic overuse headache Priority: Primary Status: Acute Hospital course: Ms. Moreno is a 67 year old female past medical history of coronary disease and myocardial infarction 3 times a day hyperlipidemia. History of CABG. Patient presented to the emergency room 3 day history of headache as well as experiencing chest pressure with associated symptoms of diaphoresis nausea. Initial EKG was unremarkable troponins were negative. Patient did undergo a pharm nuclear cardiac stress test which was negative for any ischemia or infarct. She was seen by neurology initial CT of head was negative MRI MRA of head was obtained which was negative for any intracranial abnormality bleed or infarct. Neurology suspect likely analgesic overuse complicated migraine. Advising patient to decrease her Percocet use. Patient is to follow-up with PCP. Also advised patient to follow-up with pain management as outpatient for alternatives to pain control. Patient denies any chest pain or headache at this time. She is hemodynamically stable. Advised patient to follow-up with PCP since this provider knows her best verbalized understanding. She is ready for discharge Discharge discussed with: patient - Time Spent with Patient Total time spent providing and/or coordinating discharge services: - Discharge Medications Home Medications: Amlodipine [Norvasc] 5 mg PO DAILY 05/19/15 [History] Clopidogrel [Plavix] 75 mg PO QAM 05/19/15 [History] Escitalopram [Lexapro] 20 mg PO QAM 05/19/15 [History] Levothyroxine [Synthroid] 50 mcg PO QAM 05/19/15 [History] Fenofibrate [Lofibra] 160 mg PO DAILY 02/02/16 [History] Furosemide [Lasix] 40 mg PO DAILY 02/02/16 [History] Lisinopril [Zestril] 40 mg PO DAILY 02/02/16 [History] Omeprazole [PriLOSEC] 20 mg PO DAILY 02/02/16 [History] Potassium Chloride 20 meq PO DAILY 02/02/16 [History] clonazePAM [Klonopin] 1 mg PO TID 02/02/16 [History] Atorvastatin [Lipitor] 80 mg PO HS 06/13/16 [History] Docusate [Colace] 100 mg PO BID PRN #0 capsule 06/15/16 [Rx] Metoprolol [Lopressor] 100 mg PO BID 08/09/16 [History] Ranolazine [Ranexa] 1,000 mg PO BID 08/09/16 [History] Nitroglycerin [Nitrolingual] 1 spr SL Q5M PRN 12/12/17 [History] OxyCODONE/APAP 7.5/325 [Percocet 7.5/325 MG] 1 - 2 tab PO Q6HR PRN 12/12/17 [ History] Allergies/Adverse Reactions: 3 Allergy/AdvReac Type Severity Reaction Status Date / Time sumatriptan [From Imitrex] Allergy Severe Unconscious Verified 06/28/17 13:36 Penicillins Allergy Mild Hives Verified 06/28/17 13:36 morphine AdvReac Intermediate Insomnia Verified 06/28/17 13:36 tramadol AdvReac Intermediate Nausea Verified 06/28/17 13:36 ibuprofen AdvReac Mild See Verified 06/28/17 13:36 Comments ketorolac [From Toradol] AdvReac Mild Nausea Verified 06/28/17 13:36 Date of admission: 12/11/17 23:52 Primary care physician: Mk Redding Consults: 12/12/17 01:09 Consult to Neurology [CONS] Routine Consulting Provider: Neurology [facility] Reason for Consult: persistent headache Call Completed: No Discharging clinician: Shelley Ness Anticipated date of discharge: 12/13/17 - Constitutional Vitals: Temp Pulse Resp BP Pulse Ox 98.8 F 57 16 111/58 96 12/13/17 11:02 12/13/17 11:02 12/13/17 11:02 12/13/17 11:02 12/13/17 11:02 General appearance: Present: cooperative, A&O X 3, pleasant, obese, answers questions appropriately - Head Head exam: Present: atraumatic, normocephalic - Eye Eye exam: Present: PERRL, conjuntiva pink, sclera anicteric Pupils: Present: PERRL - Neck Neck exam general surgery: Present: supple, trachea midline. Absent: lymphadenopathy - Respiratory Respiratory exam: Present: CTAB. Absent: accessory muscle use, rales, rhonchi, wheezes - Cardiovascular Cardiovascular exam: Present: RRR, +S1, +S2. Absent: diastolic murmur, gallop, rubs, systolic murmur - GI/Abdominal GI/Abdominal exam: Present: normal bowel sounds, soft, no peritoneal signs. Absent: distended, tenderness - Extremities Exam Extremities exam: Present: warm, radial pulses palpable and symmetrical. Absent : calf tenderness, cyanotic, pedal edema - Neurological Exam Neurological exam: Present: CN II-XII intact, oriented X3, no focal deficits. Absent: pronater drift, facial droop, speech deficit - Patient Status Disposition: Home, Self-Care Condition: Good Functional capacity at discharge: independent ambulation Overall status at discharge: patient is back to baseline - Discharge Instructions Instructions: Chest Pain (DC), Chronic Hypertension (DC) Follow Up With: Mk Redding PAC [Primary Care Provider] - (We left a message for the office to call you with an appointment time and day. ) Oswald Cash DO [Partnered Physician] - 12/29/17 11:00 am (This is with Andrzej Lyn) Additional Instructions: Follow-up appointments: If there is not an appointment listed below, please call your physician and schedule a follow-up appointment. If you have congestive heart failure and your symptoms return, make an appointment with your physician. Medication List: Carry an up to date list of medications you are taking at all time. We have given you an updated medication list including any new medications that you have been prescribed. Please provide that list to your primary provider Symptoms: If your condition changes or you experience any of the following symptoms, notify your physician immediately: Unusual or worsening pain, fever, persistent nausea and vomiting, bleeding, increase in swelling (especially in your legs), sudden weight gain, extreme dizziness, chest pain, increased drainage or redness from a wound or incision. Go to the emergency department if you experience a problem with breathing. Weights: If you have a history of swelling or shortness of breath, weigh yourself daily and notify your physician if you have a weight gain of two or more pounds in one day or 5 or more pounds in a week. If you experience any of the warning signs for stroke: Sudden numbness or weakness of the face, arm or leg; especially on one side of the body, sudden confusion, trouble speaking or understanding, sudden trouble seeing in one or both eyes, sudden trouble walking, dizziness, loss of balance or coordination, sudden sever headache with no cause; Call 911 or go to the emergency room. Stroke is a medical emergency. Some risk factors for stroke: Age, cigarette smoking, diabetes, excessive alcohol consumption, family history , high blood pressure, overweight, physical inactivity, prior stroke, heart attack, diagnosis of carotid artery stenosis or other artery disease. If you smoke, STOP: Smoking or tobacco use significantly increases your risk of heart and lung disease. Your chance of disease greatly increases if you continue to smoke. For more information, call the [place] tobacco quit line for smoking cessation 4 QUIT-NOW ( )
--- NOTE | 2017-12-15 16:34 | Electrocardiograph Report ---
[address] [address] Test Date: 2017-12-11 Pat Name: Iveth Moreno Department: 103 Room: 3B Gender: F Director Metabolism: LRMae : 1950 Requested By: Jony Barros Order Number: [id number] Reading MD: Oswald Cash Measurements Intervals [place] Rate: 77 P: 50 AK: 135 QRS: -4 QRSD: 98 T: 27 QT: 398 QTc: 430 Interpretive Statements SINUS RHYTHM Electronically Signed On 12-15-2017 16:32:37 EDT by Oswald Cash
== END 2017-12-13 15:35 | disposition home or self-care (01) ==
LOC: 3BNU 20:08 → EMEROO 20:08 → 3BNU 12-12 00:23
PROVIDERS: ADMIT Internal Medicine Cardiovascular Disease; ATTEND Internal Medicine Cardiovascular Disease

== ENCOUNTER 2018-04-23 20:56 | Observation (INO) ==
[2018-04-23] MEDS ORDERED: Dexamethasone 4 MG/ML VIAL IVP ONE (21:29)
[2018-04-23] MEDS ORDERED: *HR* FentaNYL (PF) 100 MCG/2 ML VIAL IVP ONE ×2 (21:29→23:57)
--- NOTE | 2018-04-23 21:30 | Emergency Department Note ---
Addendum entered and electronically signed by Damian Bowling DO 04/23/18 23:14: Addendum: Upon reevaluation, patient has stated that she had a right-sided facial droop earlier today several hours ago. She stated this lasted for about 3 hours and then went away. She also had tingling of her right face during that time. No neuro symptoms currently. She does report a history of TIAs in the past. With this new development, will perform basic blood work, EKG, troponin, CT of the head noncontrast for further assessment. Patient also continues to have back pain despite treatment. We will go ahead with the above listed orders and then sign out to night team, Dr. Crow and Dr. Xavier for further care and disposition. Recommend admission for back pain control and further CVA workup. Please see their notes for additional detail. Change disposition to: Still patient Add right-sided facial tingling and droop (now resolved) to clinical impression. Original Note: Disposition Clinical Impression: TIA (transient ischemic attack) Back pain Qualifiers: Back pain location: low back pain Chronicity: unspecified Back pain laterality : midline Sciatica presence: without sciatica Qualified Code(s): M54.5 - Low back pain Disposition: Admitted As Inpatient Condition: Good Time of Disposition: 22:33 Back Pain HPI - General Chief Complaint: ED Back Pain/Injury Stated Complaint: Back pain Time Seen by Provider: 04/23/18 21:03 Source: patient Mode of arrival: wheelchair Limitations: no limitations Nursing Notes Reviewed: Yes Vital Signs Reviewed: Yes - History of Present Illness HPI Narrative: Patient is a 67-year-old female with past medical history of multiple back surgeries including shruthi placement in the cervical and lumbar spine and discectomies. She states that she has chronic back pain subsequently, takes Percocet 3 times a day as prescribed by her primary care physician. She presents today due to worsening back pain. She states that over the past 5 weeks, her lower back pain has worsened, is radiating into her sacrum, occasionally radiates down her left leg, also radiates all the way up into her cervical spine. She has occasional tingling in her right thigh. All the symptoms are chronic but worsening. Currently rates her pain a 10 out of 10. Denies any other new numbness, tingling, weakness. Denies any loss of bowel or bladder control. She does note diarrhea but has not lost control of bowels. Denies any fevers, chest pain, shortness of breath, nausea, vomiting, abdominal pain. She does note decreased ambulation due to pain but not weakness. She presents today due to concern for symptomatic control. - Related Data Home Medications Medication Instructions Recorded Confirmed Amlodipine [Norvasc] 5 mg PO DAILY 05/19/15 04/24/18 Clopidogrel [Plavix] 75 mg PO QAM 05/19/15 04/24/18 Escitalopram [Lexapro] 20 mg PO QAM 05/19/15 04/24/18 Levothyroxine [Synthroid] 50 mcg PO QAM 05/19/15 04/24/18 Fenofibrate [Lofibra] 160 mg PO DAILY 02/02/16 04/24/18 Furosemide [Lasix] 40 mg PO DAILY 02/02/16 04/24/18 Lisinopril [Zestril] 40 mg PO DAILY 02/02/16 04/24/18 Omeprazole [PriLOSEC] 20 mg PO DAILY 02/02/16 04/24/18 Potassium Chloride 10 meq PO DAILY 02/02/16 04/24/18 clonazePAM [Klonopin] 1 mg PO TID 02/02/16 04/24/18 Atorvastatin [Lipitor] 80 mg PO HS 06/13/16 04/24/18 Metoprolol [Lopressor] 100 mg PO DAILY 08/09/16 04/24/18 Ranolazine [Ranexa] 1,000 mg PO BID 08/09/16 04/24/18 Nitroglycerin [Nitrolingual] 1 spr SL Q5M PRN 12/12/17 04/24/18 OxyCODONE/APAP 7.5/325 [Percocet 1 - 2 tab PO Q6HR PRN 12/12/17 04/24/18 7.5/325 MG] Allergies Allergy/AdvReac Type Severity Reaction Status Date / Time sumatriptan [From Imitrex] Allergy Severe Unconscious Verified 06/28/17 13:36 Penicillins Allergy Mild Hives Verified 06/28/17 13:36 morphine AdvReac Intermediate Insomnia Verified 06/28/17 13:36 tramadol AdvReac Intermediate Nausea Verified 06/28/17 13:36 ibuprofen AdvReac Mild See Verified 06/28/17 13:36 Comments ketorolac [From Toradol] AdvReac Mild Nausea Verified 06/28/17 13:36 All systems ED: reviewed and negative except as stated. Constitutional: Denies: fever Cardiovascular: Denies: chest pain Respiratory: Denies: cough, dyspnea Gastrointestinal: Reports: diarrhea. Denies: abdominal pain, nausea, vomiting Genitourinary: Denies: urgency, dysuria, frequency Musculoskeletal: Reports: back pain, neck pain Integumentary: Denies: rash Neurological: Reports: paresthesias (Chronic right thigh). Denies: headache, weakness, numbness Past Medical History - Past Medical History Attestation: Yes The following information was validated with the patient. Source: patient Medical history: Reports: coronary artery disease, GERD, hyperlipidemia, hypertension, myocardial infarction, renal disease, TIA, other Surgical history: Reports: angioplasty/stent, cholecystectomy, coronary bypass ( CABG), hysterectomy, knee replacement, other Psychiatric history: Reports: anxiety, depression, panic disorder, other COLD MEAT CHEF history: Reports: non-contributory - Social History Smoking Status: Never smoker Smokeless Tobacco Status: No Alcohol use: Reports: none Drug use: Reports: none Physical Exam - General General appearance: alert, other (Laying on right side, appears to be uncomfortable) - Head Head exam: atraumatic, normocephalic, normal inspection - Eye Eye exam: Present: normal appearance, PERRL, EOMI - ENT ENT exam: normal exam, normal oropharynx, mucous membranes moist - Neck Neck exam: Present: normal inspection, full ROM, trachea midline - Chest Chest inspection: Present: normal inspection, symmetric chest wall rise - Respiratory Respiratory exam: Present: normal lung sounds bilaterally - Cardiovascular Cardiovascular exam: Present: regular rate, normal rhythm, normal heart sounds - Abdominal Exam Abdominal exam: Present: soft, Non-Tender. Absent: tenderness, distention, guarding, rebound, rigidity - Extremities Exam Extremities exam: Present: normal inspection, full ROM. Absent: tenderness, pedal edema - Back Exam Back exam: Present: vertebral tenderness (Entire cervical, thoracic, lumbar spine). Absent: muscle spasm, paraspinal tenderness, sciatic notch tenderness ( R), sciatic notch tenderness (L), straight leg raise (R), straight leg raise (L) - Neurological Exam Neurological exam: Present: alert, oriented X3, CN II-XII intact. Absent: motor sensory deficit - Expanded Neurological Exam Patient oriented to: Present: person, place, time Speech: Present: fluid speech Cranial nerves: EOM function (II, III, IV, ): Normal, facial sensation (V): Normal, facial palsy (VII): Normal, spinal accessory function (XI): Normal, tongue deviation (XII): Normal Motor strength - LUE: 5/5 Motor strength - RUE: 5/5 Motor strength - LLE: 5/5 Motor strength - RLE: 5/5 Sensory exam upper extremity: light touch: Normal Sensory exam lower extremity: light touch: Normal Coma Scale Eye Opening: Spontaneous Coma Scale Motor Response: Obeys Commands Coma Scale Verbal Response: Oriented Coma Scale Total: 15 - Psychiatric Psychiatric exam: Present: normal affect, normal mood - Skin Skin exam: Present: warm, dry, intact, normal color Course Course Narrative: Vitals within normal limits. Physical exam shows vertebral tenderness of the entire cervical, thoracic, lumbar spine. No focal neurologic deficits appreciated. Sensation and motor, strength all intact of the bilateral lower extremities. No concern for anything like cauda equina. No loss of bowel or bladder control, no fevers. This is acute exacerbation of chronic pain. We will treat the patient with Decadron, fentanyl, Lidoderm patch. Once we get patient's symptoms under control, will send home and have her continue her home medications of Percocet. We will also have her call her back surgeon at [facility] for reevaluation, will have her return sooner to the ER for any new or worsening symptoms. Vital Signs Temperature 98.4 F 04/23/18 21:04 Pulse Rate 95 04/23/18 21:04 Respiratory Rate 18 04/23/18 21:04 Blood Pressure 124/78 04/23/18 21:04 O2 Sat by Pulse Oximetry 95 04/23/18 21:04 Temperature 98.6 F 04/24/18 07:03 Pulse Rate 81 04/24/18 07:03 Respiratory Rate 17 04/24/18 07:03 Blood Pressure 130/73 04/24/18 07:03 O2 Sat by Pulse Oximetry 96 04/24/18 07:03 Oxygen Delivery Oxygen Delivery Room Air Back Pain/Injury - MDM Narrative Medical decision making narrative: Vitals within normal limits. Physical exam shows vertebral tenderness of the entire cervical, thoracic, lumbar spine. No focal neurologic deficits appreciated. Sensation and motor, strength all intact of the bilateral lower extremities. No concern for anything like cauda equina. No loss of bowel or bladder control, no fevers. This is acute exacerbation of chronic pain. We will treat the patient with Decadron, fentanyl, Lidoderm patch. Once we get patient's symptoms under control, will send home and have her continue her home medications of Percocet. We will also have her call her back surgeon at [facility] for reevaluation, will have her return sooner to the ER for any new or worsening symptoms. - Medical Records Medical records reviewed: Yes I reviewed the patient's medical records. - Lab Data Result diagrams: 04/24/18 09:39 04/24/18 06:33 Lab Results 04/23/18 04/23/18 04/23/18 Range/Units 23:18 23:18 23:18 WBC 5.7 (4.3-11.1) K/mcL RBC 4.34 (3.82-4.97) M/mcL Hgb 13.3 (11.5-15.4) g/dL Hct 40.2 (35.3-44.9) % MCV 92.6 (83.0-100.0) fL MCH 30.6 (28.0-33.3) pg MCHC 33.1 (31.6-35.5) g/dL RDW 12.8 (11.5-14.5) % Plt Count 311 (140-400) K/mcL MPV 10.9 (9.4-12.4) fL Immature Gran % 0.5 (0-4) % Seg Neutrophils % 54.9 % Lymphocytes % 29.2 % Monocytes % 11.7 % Eosinophils % 3.0 % Basophils % 0.7 % Neutrophils # 3.1 (1.6-8.9) K/mcL Lymphocytes # 1.7 (0.6-4.6) K/mcL Monocytes # 0.7 (0.0-1.3) K/mcL Eosinophils # 0.2 (0.0-0.6) K/mcL Basophils # 0.0 (0.0-0.2) K/mcL PT 12.2 H (9.4-12.1) Seconds INR 1.1 APTT 30.5 (26.0-36.0) Seconds Sodium 139 (136-145) mEq/L Potassium 4.0 (3.5-5.1) mEq/L Chloride 104 (98-107) mEq/L Carbon Dioxide 27 (23-29) mEq/L BUN 18 (8-23) mg/dL Creatinine 1.03 (0.60-1.20) mg/dL Est GFR ( Amer) > 60 (> 60) Est GFR (Non-Af Amer) 54 L (> 60) BUN/Creatinine Ratio 17 (6-26) Glucose 183 H (70-105) mg/dL Calculated Osmolality 295 (280-300) Calcium 9.2 (8.6-10.3) mg/dL Troponin I < 0.03 (< 0.04) ng/mL Attestation Statement - Attestation Attestation: I, Len Sams, examined this patient and my medical decision-making was reviewed with the AERIAL PHOTOGRAMMETRIST/PA/Advanced Practice Nurse/Resident Physician. I agree with the documented findings, disposition and treatment plan as described except to the extent set forth below. 67-year-old female presents emergency Department with multiple complaints. Patient states her main concern is her back pain that is in the midline lumbar spine and bilateral paravertebral musculature that radiates to her upper thoracic back. She also states that she has felt increasingly weak and fatigued over the past 2-3 days. She also reports having right-sided facial droop and right-sided facial paresthesias which lasted for multiple hours throughout the day today and then resolved. Patient does not have a specific time of onset of her symptoms or when they resolved. Imaging, labs are pending at this time. Patient care was transferred to Dr. Crow for reevaluation and disposition.
[2018-04-23] MEDS ORDERED: Ondansetron 4 MG/2 ML VIAL IVP ONE (22:38)
[2018-04-23 23:34] LABS: Basophils % 0.7 %; Eosinophils # 0.2 K/mcL (0.0-0.6); Hematocrit 40.2 % (35.3-44.9); Hemoglobin 13.3 g/dL (11.5-15.4); Immature Granulocytes % 0.5 % (0-4); Lymphocytes # 1.7 K/mcL (0.6-4.6); Lymphocytes % 29.2 %; Mean Corpuscular HGB Conc 33.1 g/dL (31.6-35.5); Mean Corpuscular Hemoglobin 30.6 pg (28.0-33.3); Mean Corpuscular Volume 92.6 fL (83.0-100.0); Mean Platelet Volume 10.9 fL (9.4-12.4); Monocytes # 0.7 K/mcL (0.0-1.3); Monocytes % 11.7 %; Neutrophils # 3.1 K/mcL (1.6-8.9); Platelet Count 311 K/mcL (140-400); Red Blood Count 4.34 M/mcL (3.82-4.97); Red Cell Distribution Width 12.8 % (11.5-14.5); Segmented Neutrophils % 54.9 %
[2018-04-23 23:40] LABS: INR 1.1; Prothrombin Time 12.2 Seconds (9.4-12.1)
[2018-04-23 23:42] LABS: Activated Partial Thrombo Time 30.5 Seconds (26.0-36.0)
[2018-04-23 23:53] LABS: BUN/Creatinine Ratio 17 (6-26); Blood Urea Nitrogen 18 mg/dL (8-23); Calcium 9.2 mg/dL (8.6-10.3); Carbon Dioxide 27 mEq/L (23-29); Chloride 104 mEq/L (98-107); Glucose 183 mg/dL (70-105); Osmolality,Calculated 295 (280-300); Sodium 139 mEq/L (136-145); Troponin I < 0.03 ng/mL (< 0.04); eGFR For Non-African Americans 54 (> 60)
--- NOTE | 2018-04-23 23:59 | Emergency Department Note ---
Disposition Clinical Impression: TIA (transient ischemic attack) Back pain Qualifiers: Back pain location: low back pain Chronicity: unspecified Back pain laterality : midline Sciatica presence: without sciatica Qualified Code(s): M54.5 - Low back pain Disposition: Admitted As Inpatient Condition: Good Referrals: Giselle Bradford [Primary Care Provider] - Forms: ED Satisfaction Letter Time of Disposition: 01:04 General Adult HPI - General Chief complaint: ED Back Pain/Injury Stated complaint: Back pain Time Seen by Provider: 04/23/18 21:03 Source: patient Mode of arrival: wheelchair Limitations: no limitations - History of Present Illness HPI Narrative: Patient seen and examined. Patient was signed out by the prior provider. Please see their documentation for complete history and physical. Pain Scale: 10 - Related Data Home Medications Medication Instructions Recorded Confirmed Amlodipine [Norvasc] 5 mg PO DAILY 05/19/15 12/12/17 Clopidogrel [Plavix] 75 mg PO QAM 05/19/15 12/12/17 Escitalopram [Lexapro] 20 mg PO QAM 05/19/15 12/12/17 Levothyroxine [Synthroid] 50 mcg PO QAM 05/19/15 12/12/17 Fenofibrate [Lofibra] 160 mg PO DAILY 02/02/16 12/12/17 Furosemide [Lasix] 40 mg PO DAILY 02/02/16 12/12/17 Lisinopril [Zestril] 40 mg PO DAILY 02/02/16 12/12/17 Omeprazole [PriLOSEC] 20 mg PO DAILY 02/02/16 12/12/17 Potassium Chloride 20 meq PO DAILY 02/02/16 12/12/17 clonazePAM [Klonopin] 1 mg PO TID 02/02/16 12/12/17 Atorvastatin [Lipitor] 80 mg PO HS 06/13/16 12/12/17 Metoprolol [Lopressor] 100 mg PO BID 08/09/16 12/12/17 Ranolazine [Ranexa] 1,000 mg PO BID 08/09/16 12/12/17 Nitroglycerin [Nitrolingual] 1 spr SL Q5M PRN 12/12/17 12/12/17 OxyCODONE/APAP 7.5/325 [Percocet 1 - 2 tab PO Q6HR PRN 12/12/17 12/12/17 7.5/325 MG] Previous Rx's Medication Instructions Recorded Docusate [Colace] 100 mg PO BID PRN #0 capsule 06/15/16 Allergies Allergy/AdvReac Type Severity Reaction Status Date / Time sumatriptan [From Imitrex] Allergy Severe Unconscious Verified 06/28/17 13:36 Penicillins Allergy Mild Hives Verified 06/28/17 13:36 morphine AdvReac Intermediate Insomnia Verified 06/28/17 13:36 tramadol AdvReac Intermediate Nausea Verified 06/28/17 13:36 ibuprofen AdvReac Mild See Verified 06/28/17 13:36 Comments ketorolac [From Toradol] AdvReac Mild Nausea Verified 06/28/17 13:36 Constitutional: Denies: fever Cardiovascular: Denies: chest pain Respiratory: Denies: cough, dyspnea Gastrointestinal: Reports: diarrhea. Denies: abdominal pain, nausea, vomiting Genitourinary: Denies: urgency, dysuria, frequency Musculoskeletal: Reports: back pain, neck pain Integumentary: Denies: rash Neurological: Reports: paresthesias (Chronic right thigh). 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 Of note the patient's 67-year-old female with history of CAD, chronic back pain status post multiple lumbar surgeries presents for evaluation of acute on chronic back pain. Patient also states that she felt that she had a TIA. Notes that she has a history of TIAs in the past. That her back pain has been getting progressively worse. Notes pain is primarily in her lower lumbar and into her sacrum. States the pain does radiate up into her neck. Denies any neurologic deficits. Patient did however today states that she had right-sided facial droop that lasted 2-3 hours round 1600 this afternoon and spontaneous resolved. Does have a history of TIAs in the past. Patient denied any slurred speech. No focal weaknesses. Patient initially was signed out given concerns of likely TIA versus CVA and intractable back pain. - Reevaluation(s) Reevaluation #1: Patient states that her pain did improve prior notes that is worse. On exam the patient does have Lower lumbar tenderness. No step-offs. Aged scars. No numbness or tingling or weakness of the lower extremities. Time: 00:13 Vital Signs Temperature 98.4 F 04/23/18 21:04 Pulse Rate 95 04/23/18 21:04 Respiratory Rate 18 04/23/18 21:04 Blood Pressure 124/78 04/23/18 21:04 O2 Sat by Pulse Oximetry 95 04/23/18 21:04 Temperature 98.4 F 04/23/18 21:04 Pulse Rate 78 04/24/18 00:00 Respiratory Rate 18 04/23/18 23:20 Blood Pressure 140/66 04/24/18 00:00 O2 Sat by Pulse Oximetry 94 04/23/18 23:24 Oxygen Delivery Oxygen Delivery Room Air Medical Decision Making - MDM Narrative Medical decision making narrative: Patient's workup was initiated by the prior provider's. Patient initially is complaining of back pain. Patient on exam has no clinical signs is cauda equina. No change in bowels or bladder. Patient had acute on chronic episodes of back pain states she has plenty of pain medication home. Patient did get CT imaging of the back to ensure that the hardware was in place. Patient says family said that she was complaining of some facial droop and numbness. Prompted a TIA workup that she has a history of multiple TIAs in the past. MRI in the past was reviewed and showed chronic small vessel ischemic disease. Patient had a CT of the head which showed no acute abnormalities. Patient was given aspirin. Patient nature of 0. Patient will be admitted for TIA evaluation. - Lab Data Lab results reviewed: Yes I reviewed the patient's lab results. Result diagrams: 04/23/18 23:18 04/23/18 23:18 Lab Results 04/23/18 04/23/18 04/23/18 Range/Units 23:18 23:18 23:18 WBC 5.7 (4.3-11.1) K/mcL RBC 4.34 (3.82-4.97) M/mcL Hgb 13.3 (11.5-15.4) g/dL Hct 40.2 (35.3-44.9) % MCV 92.6 (83.0-100.0) fL MCH 30.6 (28.0-33.3) pg MCHC 33.1 (31.6-35.5) g/dL RDW 12.8 (11.5-14.5) % Plt Count 311 (140-400) K/mcL MPV 10.9 (9.4-12.4) fL Immature Gran % 0.5 (0-4) % Seg Neutrophils % 54.9 % Lymphocytes % 29.2 % Monocytes % 11.7 % Eosinophils % 3.0 % Basophils % 0.7 % Neutrophils # 3.1 (1.6-8.9) K/mcL Lymphocytes # 1.7 (0.6-4.6) K/mcL Monocytes # 0.7 (0.0-1.3) K/mcL Eosinophils # 0.2 (0.0-0.6) K/mcL Basophils # 0.0 (0.0-0.2) K/mcL PT 12.2 H (9.4-12.1) Seconds INR 1.1 APTT 30.5 (26.0-36.0) Seconds Sodium 139 (136-145) mEq/L Potassium 4.0 (3.5-5.1) mEq/L Chloride 104 (98-107) mEq/L Carbon Dioxide 27 (23-29) mEq/L BUN 18 (8-23) mg/dL Creatinine 1.03 (0.60-1.20) mg/dL Est GFR ( Amer) > 60 (> 60) Est GFR (Non-Af Amer) 54 L (> 60) BUN/Creatinine Ratio 17 (6-26) Glucose 183 H (70-105) mg/dL Calculated Osmolality 295 (280-300) Calcium 9.2 (8.6-10.3) mg/dL Troponin I < 0.03 (< 0.04) ng/mL - Radiology Data Radiology results reviewed: Yes I reviewed the patient's radiology results. Chest X-Ray 04/23/18 23:10 IMPRESSION: No acute pulmonary disease. Calcific atherosclerotic disease aorta. Previous CABG. D/ / Judd Muse / Judd Muse Interpreting Provider: Judd Muse Head CT 04/24/18 00:00 IMPRESSION: No acute intracranial abnormality. D/ / Abe Laura MD / Abe Laura MD Interpreting Provider: Abe Laura MD Lumbar Spine CT 04/24/18 00:00 IMPRESSION: 1. Stable degenerative changes most severe L5-S1 with moderate to severe canal stenosis. 2. 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 3. Slight degenerative anterolisthesis L4 on L5 and degenerative retrolisthesis L1 on L2. Mild leftward listhesis L4 on L5. 4. Mild mid lumbar levoscoliosis. D/ / Judd Muse / Judd Muse Interpreting Provider: Judd Muse Alan - Alan Situation: Demographics Background: Presenting Complaint Assessment: Vital Signs, Course and respsone to treatment, Patient/Family Expectation Recommendation: Barrier(s) to disposition, Recommendation based on pending studies, treatments, or consults Alan Report Given to: Dr. Jorge Phillips Repor Time: 01:02
[2018-04-24] MEDS ORDERED: Aspirin 325 MG TABLET PO ONE (00:52)
--- NOTE | 2018-04-24 02:01 | Emergency Department Note ---
Disposition Clinical Impression: TIA (transient ischemic attack) Back pain Qualifiers: Back pain location: low back pain Chronicity: unspecified Back pain laterality : midline Sciatica presence: without sciatica Qualified Code(s): M54.5 - Low back pain Disposition: Admitted As Inpatient Condition: Good General Adult HPI - General Chief complaint: ED Back Pain/Injury Stated complaint: Back pain Time Seen by Provider: 04/23/18 21:03 Source: patient Mode of arrival: wheelchair Limitations: no limitations Nursing Notes Reviewed: Yes Vital Signs Reviewed: Yes - History of Present Illness Pain Scale: 0 - Related Data Home Medications Medication Instructions Recorded Confirmed Amlodipine [Norvasc] 5 mg PO DAILY 05/19/15 04/24/18 Clopidogrel [Plavix] 75 mg PO QAM 05/19/15 04/24/18 Escitalopram [Lexapro] 20 mg PO QAM 05/19/15 04/24/18 Levothyroxine [Synthroid] 50 mcg PO QAM 05/19/15 04/24/18 Fenofibrate [Lofibra] 160 mg PO DAILY 02/02/16 04/24/18 Furosemide [Lasix] 40 mg PO DAILY 02/02/16 04/24/18 Lisinopril [Zestril] 40 mg PO DAILY 02/02/16 04/24/18 Omeprazole [PriLOSEC] 20 mg PO DAILY 02/02/16 04/24/18 Potassium Chloride 10 meq PO DAILY 02/02/16 04/24/18 clonazePAM [Klonopin] 1 mg PO TID 02/02/16 04/24/18 Atorvastatin [Lipitor] 80 mg PO HS 06/13/16 04/24/18 Metoprolol [Lopressor] 100 mg PO DAILY 08/09/16 04/24/18 Ranolazine [Ranexa] 1,000 mg PO BID 08/09/16 04/24/18 Nitroglycerin [Nitrolingual] 1 spr SL Q5M PRN 12/12/17 04/24/18 OxyCODONE/APAP 7.5/325 [Percocet 1 - 2 tab PO Q6HR PRN 12/12/17 04/24/18 7.5/325 MG] Allergies Allergy/AdvReac Type Severity Reaction Status Date / Time sumatriptan [From Imitrex] Allergy Severe Unconscious Verified 11/07/17 13:36 Penicillins Allergy Mild Hives Verified 06/28/17 13:36 morphine AdvReac Intermediate Insomnia Verified 06/28/17 13:36 tramadol AdvReac Intermediate Nausea Verified 06/28/17 13:36 ibuprofen AdvReac Mild See Verified 06/28/17 13:36 Comments ketorolac [From Toradol] AdvReac Mild Nausea Verified 06/28/17 13:36 Constitutional: Denies: fever Cardiovascular: Denies: chest pain Respiratory: Denies: cough, dyspnea Gastrointestinal: Reports: diarrhea. Denies: abdominal pain, nausea, vomiting Genitourinary: Denies: urgency, dysuria, frequency Musculoskeletal: Reports: back pain, neck pain Integumentary: Denies: rash Neurological: Reports: paresthesias (Chronic right thigh). 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 - Social History Smoking Status: Never smoker Smokeless Tobacco Status: No Alcohol use: Reports: none Drug use: Reports: none Physical Exam - General Limitations: no limitations General appearance: alert, other (Laying on right side, appears to be uncomfortable) Course Vital Signs Temperature 98.4 F 04/23/18 21:04 Pulse Rate 95 04/23/18 21:04 Respiratory Rate 18 04/23/18 21:04 Blood Pressure 124/78 04/23/18 21:04 O2 Sat by Pulse Oximetry 95 04/23/18 21:04 Temperature 98.4 F 04/23/18 21:04 Pulse Rate 83 04/24/18 01:19 Respiratory Rate 18 04/24/18 01:19 Blood Pressure 128/57 04/24/18 01:19 O2 Sat by Pulse Oximetry 93 04/24/18 01:19 Oxygen Delivery Oxygen Delivery Room Air Medical Decision Making - Medical Records Medical records reviewed: Yes I reviewed the patient's medical records. - Lab Data Lab results reviewed: Yes I reviewed the patient's lab results. Result diagrams: 04/23/18 23:18 04/23/18 23:18 Lab Results 04/23/18 04/23/18 04/23/18 Range/Units 23:18 23:18 23:18 WBC 5.7 (4.3-11.1) K/mcL RBC 4.34 (3.82-4.97) M/mcL Hgb 13.3 (11.5-15.4) g/dL Hct 40.2 (35.3-44.9) % MCV 92.6 (83.0-100.0) fL MCH 30.6 (28.0-33.3) pg MCHC 33.1 (31.6-35.5) g/dL RDW 12.8 (11.5-14.5) % Plt Count 311 (140-400) K/mcL MPV 10.9 (9.4-12.4) fL Immature Gran % 0.5 (0-4) % Seg Neutrophils % 54.9 % Lymphocytes % 29.2 % Monocytes % 11.7 % Eosinophils % 3.0 % Basophils % 0.7 % Neutrophils # 3.1 (1.6-8.9) K/mcL Lymphocytes # 1.7 (0.6-4.6) K/mcL Monocytes # 0.7 (0.0-1.3) K/mcL Eosinophils # 0.2 (0.0-0.6) K/mcL Basophils # 0.0 (0.0-0.2) K/mcL PT 12.2 H (9.4-12.1) Seconds INR 1.1 APTT 30.5 (26.0-36.0) Seconds Sodium 139 (136-145) mEq/L Potassium 4.0 (3.5-5.1) mEq/L Chloride 104 (98-107) mEq/L Carbon Dioxide 27 (23-29) mEq/L BUN 18 (8-23) mg/dL Creatinine 1.03 (0.60-1.20) mg/dL Est GFR ( Amer) > 60 (> 60) Est GFR (Non-Af Amer) 54 L (> 60) BUN/Creatinine Ratio 17 (6-26) Glucose 183 H (70-105) mg/dL Calculated Osmolality 295 (280-300) Calcium 9.2 (8.6-10.3) mg/dL Troponin I < 0.03 (< 0.04) ng/mL - Radiology Data Radiology results reviewed: Yes I reviewed the patient's radiology results. Chest X-Ray 04/23/18 23:10 IMPRESSION: No acute pulmonary disease. Calcific atherosclerotic disease aorta. Previous CABG. D/ / Judd Muse / Judd Muse Interpreting Provider: Judd Muse Head CT 04/24/18 00:00 IMPRESSION: No acute intracranial abnormality. D/ / Abe Laura MD / Abe Laura MD Interpreting Provider: Abe Laura MD Lumbar Spine CT 04/24/18 00:00 IMPRESSION: 1. Stable degenerative changes most severe L5-S1 with moderate to severe canal stenosis. 2. 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 3. Slight degenerative anterolisthesis L4 on L5 and degenerative retrolisthesis L1 on L2. Mild leftward listhesis L4 on L5. 4. Mild mid lumbar levoscoliosis. D/ / Judd Muse / Judd Muse Interpreting Provider: Judd Muse Attestation Statement - Attestation Attestation: I, Filippo Crow MD, personally evaluated this patient and discussed their management with the resident physician. I reviewed the resident's note and agree with the documented findings, medical decision making, and plan of care. This patient was signed out at shift change from Dr. Bowling and Dr. Len Sams. Please refer to their notes for complete details of the history and physical examination. At shift change patient is awaiting CT results before contacting the list for admission. Presented with a complaint of back pain. She has chronic back pain and has had multiple surgeries on her back. She complains of increased back pain for the past several weeks. She also complains that earlier this evening she had an episode of generalized weakness and fatigue with right facial drooping. This has resolved now. She does have a prior history of TIAs. On examination patient is a well-developed obese elderly female in no acute distress. She is alert and oriented 3. There is no cyanosis or diaphoresis. Breath sounds are equal bilaterally. Heart regular rate and rhythm. Abdomen is soft and nontender with normal bowel sounds. No gross focal neurological deficits. There is diffuse lumbar tenderness. The hospitalist, Dr. Patel, was consulted and accepted admission of the patient.
[2018-04-24] MEDS ORDERED: Naloxone 0.4 MG/ML INJ IVP PRN ×2 (03:45→05:55)
[2018-04-24] MEDS ORDERED: *HR* OxyCODONE/APAP 7.5/325 TABLET PO ONE (04:40)
[2018-04-24] MEDS ORDERED: Acetaminophen 325 MG TABLET PO PRN (05:55)
[2018-04-24] MEDS ORDERED: traMADol 50 MG TABLET PO PRN (05:55)
[2018-04-24] MEDS ORDERED: *HR* OxyCODONE Immed Rel 5 MG TABLET PO PRN (05:55)
[2018-04-24] MEDS ORDERED: Gadolinium Contrast Agent (WT Based) IV PRN (06:01)
[2018-04-24 06:57] LABS: Prothrombin Time 11.7 Seconds (9.4-12.1)
[2018-04-24 07:14] LABS: Troponin I < 0.03 ng/mL (< 0.04)
[2018-04-24 07:15] LABS: Alanine Aminotransferase 64 Units/L (7-52); Albumin 4.2 g/dL (3.5-5.7); Albumin/Globulin Ratio 1.8 (1.1-2.2); Alkaline Phosphatase 36 Units/L (34-104); Aspartate Amino Transferase 35 Units/L (13-39); BUN/Creatinine Ratio 16 (6-26); Bilirubin,Total 0.3 mg/dL (0.3-1.0); Blood Urea Nitrogen 16 mg/dL (8-23); Calcium 9.5 mg/dL (8.6-10.3); Carbon Dioxide 26 mEq/L (23-29); Chloride 103 mEq/L (98-107); Chol/HDL Ratio 5.8 (0-4.9); Cholesterol 213 mg/dL (< 200); Globulin 2.3 g/dL (2.4-3.5); Glucose 239 mg/dL (70-105); HDL Cholesterol 37 mg/dL (40-59); LDL Cholesterol,Calculated 145 mg/dL (0-99); Osmolality,Calculated 291 (280-300); Potassium 4.4 mEq/L (3.5-5.1); Sodium 136 mEq/L (136-145); Total Protein 6.5 g/dL (6.4-8.9); Triglycerides 155 mg/dL (< 150); eGFR For Non-African Americans 55 (> 60)
[2018-04-24] MEDS ORDERED: Nitroglycerin Spray 4.9 GM BOTTLE SL PRN (08:01)
[2018-04-24] MEDS: Lisinopril 20 MG TABLET PO SCH (08:40)
[2018-04-24] MEDS: Fenofibrate 54 MG TABLET PO SCH (08:40)
[2018-04-24] MEDS: Furosemide 40 MG TABLET PO SCH (08:40)
[2018-04-24] MEDS: clonazePAM 1 MG TABLET PO SCH ×3 (08:40→20:38)
[2018-04-24] MEDS: Ranolazine 500 MG TAB.ER.12H PO SCH ×2 (08:41→20:38)
[2018-04-24] MEDS: amLODIPine 5 MG TABLET PO SCH (08:41)
[2018-04-24] MEDS: Metoprolol 100 MG TABLET PO SCH (08:41)
--- NOTE | 2018-04-24 08:42 | Internal Med History&Physical ---
Date of Encounter: 04/26/18 Time of Encounter: 06:00 Internal Medicine - H&P: HPI Chief complaint: Worsening Bacl Pain/Right facial droop History of present illness: Ms. Moreno is a 67 year old female with a past medical history of coronary artery disease status post MD, hypertension, hyperlipidemia, chronic back pain status post multiple spinal surgery involving the cervical and lumbar spine, and previous history of TIA who initially presented to the ED with a chief complaint of worsening back pain. Patient stated that she has been having progressively worsening back pain over the past 5 week. Pain however become acutely worse over the past 3 days radiating to her tailbone as well as up to her cervical spine. She reports occasional tingling in the right thigh. Patient denies any loss of bowel or bladder function during these past 5 weeks. Vision was worked up for her back pain in the ED. A CT of the lumbar spine was performed which showed stable degenerative changes most severe and L5-S1 with moderate to severe canal stenosis. Initial plan in the ED was 2 get her pain under control and then discharge her for follow-up with her surgeon at [facility] for further evaluation. However shortly before being discharged to [facility], the patient endorsed right sided facial droop earlier that afternoon several hours prior to her presentation and the ED. She stated that the symptoms lasted for approximately 3 hours and then went away on her own. Her right- sided facial droop was noted by her . She stated that when she went to observe it and the mere she did not notice any significant drooping but did feel some numbness in the right corner of her mouth. A CT of the head was subsequently performed which showed no acute intracranial abnormality. Patient is currently on aspirin and Plavix. Patient subsequently admitted due to concern of TIA. Past Med Surg Social Fam HX - Past Medical History Medical history: coronary artery disease, GERD, hyperlipidemia, hypertension, myocardial infarction, renal disease, TIA, other Additional medical history: On home o2 Psychiatric history: anxiety, depression, panic disorder, other - Past Surgical History Surgical History: angioplasty/stent, cholecystectomy, coronary bypass (CABG), hysterectomy, knee replacement, other Additional surgical history: right shoulder replacement, right knee replacement twice left knee one replacement - Social History Smoking Status: Never smoker Smokeless Tobacco Status: No Alcohol use: none Drug use: none - Family History Mother Living Status: Hx Family Cardiac Disorders: Yes Hx Family Cancer: Yes (breast and colon) Father Adopted: No Family Member Ethnicity: Non- Living Status: Hx Family Cardiac Disorders: Yes Hx Family Respiratory Disorders: No Hx Family Cancer: No Hx Family GI Disorders: No Hx Family Endocrine Disorder: No Hx Family Neuromuscular Disorders: No Hx Family Neurologic Disorders: Yes (CVA) Hx Family HEENT Disorders: No Hx Family Autoimmune Disorders: No Internal Medicine - H&P: Meds Amlodipine [Norvasc] 5 mg PO DAILY 05/19/15 [History] Clopidogrel [Plavix] 75 mg PO QAM 05/19/15 [History] Escitalopram [Lexapro] 20 mg PO QAM 05/19/15 [History] Levothyroxine [Synthroid] 50 mcg PO QAM 05/19/15 [History] Fenofibrate [Lofibra] 160 mg PO DAILY 02/02/16 [History] Furosemide [Lasix] 40 mg PO DAILY 02/02/16 [History] Lisinopril [Zestril] 40 mg PO DAILY 02/02/16 [History] Omeprazole [PriLOSEC] 20 mg PO DAILY 02/02/16 [History] Potassium Chloride 10 meq PO DAILY 02/02/16 [History] clonazePAM [Klonopin] 1 mg PO TID 02/02/16 [History] Atorvastatin [Lipitor] 80 mg PO HS 06/13/16 [History] Metoprolol [Lopressor] 100 mg PO DAILY 08/09/16 [History] Ranolazine [Ranexa] 1,000 mg PO BID 08/09/16 [History] Nitroglycerin [Nitrolingual] 1 spr SL Q5M PRN 12/12/17 [History] OxyCODONE/APAP 7.5/325 [Percocet 7.5/325 MG] 1 - 2 tab PO Q6HR PRN 12/12/17 [ History] Doxepin [Sinequan] 10 mg PO HS 04/24/18 [History] 3 Allergy/AdvReac Type Severity Reaction Status Date / Time sumatriptan [From Imitrex] Allergy Severe Unconscious Verified 06/28/17 13:36 Penicillins Allergy Mild Hives Verified 06/28/17 13:36 morphine AdvReac Intermediate Insomnia Verified 06/28/17 13:36 tramadol AdvReac Intermediate Nausea Verified 06/28/17 13:36 ibuprofen AdvReac Mild See Verified 06/28/17 13:36 Comments ketorolac [From Toradol] AdvReac Mild Nausea Verified 06/28/17 13:36 All Systems PM: A 10-system review of systems was performed and is negative for pertinent findings except as documented above in the HPI. - Constitutional Constitutional: no chills, no fever(s), no night sweats - EENT Eyes: no change in vision, no discharge, no pain, no photophobia Ears: no ear discharge, no ear pain, no tinnitus Nose, mouth and throat: no dysphagia, no nasal discharge, no neck pain, no sore throat - Cardiovascular Cardiovascular ROS IM: no chest pain, no diaphoresis, no dyspnea, no lightheadedness, no palpitations, no syncope - Respiratory Respiratory: no cough, no dyspnea, no wheezing, no excessive phlegm production - Gastrointestinal Gastrointestinal: no abdominal pain, no diarrhea, no hematemesis, no hematochezia, no melena, no nausea, no vomiting - Genitourinary Genitourinary: no change in urinary stream, no dysuria, no flank pain, no hematuria - Musculoskeletal Musculoskeletal ROS IM: no numbness, no tingling - Integumentary Integumentary IM: no rash, no unusual bruising - Neurological Neurological ROS: no confusion, no convulsions, no focal weakness, no numbness, no tingling, no tremor(s) - Hematologic/Lymphatic Hematologic/Lymphatic: no easy bruising - Constitutional Vitals: Temp Pulse Resp BP Pulse Ox 98.6 F 81 17 130/73 96 04/24/18 07:03 04/24/18 07:03 04/24/18 07:03 04/24/18 07:03 04/24/18 07:03 Exam: General: Alert and oriented 3 lying on her left side expressing back pain Skin:Normal color, no rash, no lesions. HEENT:EOM, pupils equal, round and reactive. Cardiovascular:Normal S1 & S2, no rubs, murmurs or gallops. No JVD. Pulse regular. Lungs:Normal breath sounds, no wheezes or crackles. Abdomen:Soft, non-tender, no rigidity. Extremities:No deformity, no edema or tenderness, no joint swelling or clubbing. Neurological:Normal cognition. Cranial nerves II through XII intact. Slight pronator drift noted in the right upper extremity. Muscle strength 5 out of 5 on the left upper and lower extremity and 4 out of 5 in the right upper and lower extremity. Sensation intact. Babinski mute on the right lower extremity and downgoing on the left . Pulses:Carotid and radial pulses normal +2. Rest of the physical exam is non contributory Internal Med - H&P Results - Labs CBC & Chem 7: 04/25/18 05:41 04/25/18 05:41 Labs: BMP 04/24/18 06:33 Sodium 136 Potassium 4.4 Chloride 103 Carbon Dioxide 26 BUN 16 Creatinine 1.00 Glucose 239 H Calcium 9.5 Cardiac Enzymes 04/24/18 Range/Units 06:33 Troponin I < 0.03 (< 0.04) ng/mL Liver Function 04/24/18 Range/Units 06:33 Total Bilirubin 0.3 (0.3-1.0) mg/dL AST 35 (13-39) Units/L ALT 64 H (7-52) Units/L Alkaline Phosphatase 36 (34-104) Units/L Albumin 4.2 (3.5-5.7) g/dL - Assessment and plan (1) Back pain Current Visit: Yes Status: Acute Assessment and plan: Acute on chronic back pain. Patient does not have evidence of cauda equina syndrome. Consider obtaining MRI of the thoracic and lumbar spine. We will continue with pain control and monitor. Consider orthopedic consultation versus outpatient follow-up with surgeon at [facility] as documented by ED. Qualifiers: Back pain location: low back pain Chronicity: unspecified Back pain laterality: midline Sciatica presence: without sciatica Qualified Code(s): M54.5 - Low back pain (2) TIA (transient ischemic attack) Current Visit: Yes Status: Acute Assessment and plan: Possible TIA with patient reported right-sided facial droop and findings of slight right-sided pronator drift and slightly decreased muscle strength on the right in upper and lower extremities. However, this may be secondary to patient 's back pain and confounding the examination. At this time we will obtain TIA workup with echocardiogram, carotid duplex and MRI of the brain. At this point I am not sure how much findings will also management as patient is already on aspirin and Plavix and a high-dose statin. Additionally patient had recent recent workup for chronic fatigue by her crew director at which time an echo was ordered as well as placement of a Holter monitor which showed underlying sinus rhythm with infrequent ectopy. A carotid duplex was also performed which showed minimal plaque throughout both carotid arteries. Consider neurology consult. (3) CAD (coronary artery disease) Current Visit: No Status: Chronic Assessment and plan: History of coronary artery disease with history of MD and CABG. Per patient she was recently seen by her crew director and had a recent echo done on April 05 as well as carotid duplex for workup of what appears to be chronic fatigue. Results showed a ejection fraction of 60% with mild left ventricular diastolic dysfunction. Qualifiers: Coronary Disease-Associated Artery/Lesion type: [place] artery [place] vs. transplanted heart: [place] heart Associated angina: with unstable angina Qualified Code(s): I25.110 - Atherosclerotic heart disease of [place] coronary artery with unstable angina pectoris (4) HTN (hypertension) Current Visit: No Status: Chronic Assessment and plan: Blood pressure relatively stable. We will continue patient's home antihypertensives. Qualifiers: Hypertension type: essential hypertension Qualified Code(s): I10 - Essential (primary) hypertension (5) Hyperlipidemia Current Visit: No Status: Chronic Assessment and plan: Continue high dose statin. Qualifiers: Hyperlipidemia type: pure hypercholesterolemia Qualified Code(s): E78.00 - Pure hypercholesterolemia, unspecified; E78.0 - Pure hypercholesterolemia - Time Spent With Patient Total time spent is greater than 50% in coordination of care (as documented) at patient's floor/unit and/or counseling patient:
[2018-04-24 09:54] LABS: Basophils % 0.1 %; Hematocrit 39.3 % (35.3-44.9); Hemoglobin 13.3 g/dL (11.5-15.4); Immature Granulocytes % 1.1 % (0-4); Lymphocytes # 0.8 K/mcL (0.6-4.6); Lymphocytes % 11.7 %; Mean Corpuscular HGB Conc 33.8 g/dL (31.6-35.5); Mean Corpuscular Hemoglobin 30.9 pg (28.0-33.3); Mean Corpuscular Volume 91.4 fL (83.0-100.0); Monocytes # 0.2 K/mcL (0.0-1.3); Monocytes % 3.4 %; Platelet Count 310 K/mcL (140-400); Red Cell Distribution Width 12.7 % (11.5-14.5); Segmented Neutrophils % 83.7 %
--- NOTE | 2018-04-24 11:17 | Internal Med Progress Note ---
Hospitalist Progress Note - Encounter Date of Encounter: 04/24/18 Time of Encounter: 11:14 - Subjective Interval History: Patient seen and examined at bedside. She complains of back pain and is requesting IV narcotics. - Exam Vitals: Temp Pulse Resp BP Pulse Ox 98.6 F 81 17 130/73 96 04/24/18 07:03 04/24/18 07:03 04/24/18 07:03 04/24/18 07:03 04/24/18 07:03 Exam: General: Alert and oriented 3 lying on her left side expressing back pain Skin:Normal color, no rash, no lesions. HEENT:EOM, pupils equal, round and reactive. Cardiovascular:Normal S1 & S2, no rubs, murmurs or gallops. No JVD. Pulse regular. Lungs:Normal breath sounds, no wheezes or crackles. Abdomen:Soft, non-tender, no rigidity. Extremities:No deformity, no edema or tenderness, no joint swelling or clubbing. Neurological:Normal cognition. Cranial nerves II through XII intact. Muscle strength 5 out of 5 on the left upper and lower extremity and 4 out of 5 in the right upper and lower extremity. Sensation intact. No facila droop noted Pulses:Carotid and radial pulses normal +2. Rest of the physical exam is non contributory - Assessment and Plan (1) TIA (transient ischemic attack) Current Visit: Yes Status: Acute Assessment and Plan: Possible TIA patient presented with reports right-sided facial droop and findings of slight right-sided pronator drift and slightly decreased muscle strength on the right in upper and lower extremities. However, this may be secondary to patient's back pain and confounding the examination. She has had a recent TIA workup cont with ASA plavix and high statin echo 04/05/2018 Impressions: LVEF 60%. Mild left ventricular diastolic dysfunction. Normal right ventricular structure and function. Mild mitral regurgitation. Mild tricuspid regurgitation. No pulmonary hypertension. carotid 03/13/2018 The bilateral carotid arteries have minimal plaque throughout. Holter monitor 03/30/18 which showed underlying sinus rhythm with infrequent ectopy. will obtain MRI of head Neuro check consult neurology (2) Back pain Current Visit: Yes Status: Acute Assessment and Plan: Acute on chronic back pain. SHe has had multiple back surgeries - STates that she has had surgery at [facility] and has been seen here by Dr Valenzuela Patient does not have evidence of cauda equina syndrome. We will check MRI of lumbar and thoracic spine - consult orthopedics as needed Cont with pain control- we will cont with roxicodone and increase to every 4 hrs cont with tramadol muscle relaxer and lidocaine patch PT/OT consult Advised to follow up with Pain management as outpatient - we will consult as needed (3) CAD (coronary artery disease) Current Visit: No Status: Chronic Assessment and Plan: History of coronary artery disease with history of VA and CABG. Per patient she was recently seen by her linux admin and had a recent echo done on April 05 as well as carotid duplex for workup of what appears to be chronic fatigue. Results showed a ejection fraction of 60% with mild left ventricular diastolic dysfunction. cont with ASA statin BB MELVINA Ranexa nitroglycerin as needed (4) HTN (hypertension) Current Visit: No Status: Chronic Assessment and Plan: Blood pressure relatively stable. We will continue patient's home antihypertensives. (5) Hyperlipidemia Current Visit: No Status: Chronic Assessment and Plan: Continue high dose statin. - Time Spent with Patient Total time spent is greater than 50% in coordination of care (as documented) at patient's floor/unit and/or counseling patient: Internal Medicine: Result - Labs CBC & Chem 7: 04/24/18 09:39 04/24/18 06:33 Labs: Short CBC 04/24/18 Range/Units 09:39 WBC 7.2 (4.3-11.1) K/mcL Hgb 13.3 (11.5-15.4) g/dL Hct 39.3 (35.3-44.9) % Plt Count 310 (140-400) K/mcL Neutrophils # 6.0 (1.6-8.9) K/mcL BMP 04/24/18 06:33 Sodium 136 Potassium 4.4 Chloride 103 Carbon Dioxide 26 BUN 16 Creatinine 1.00 Glucose 239 H Calcium 9.5 Cardiac Enzymes 04/24/18 Range/Units 06:33 Troponin I < 0.03 (< 0.04) ng/mL Liver Function 04/24/18 Range/Units 06:33 Total Bilirubin 0.3 (0.3-1.0) mg/dL AST 35 (13-39) Units/L ALT 64 H (7-52) Units/L Alkaline Phosphatase 36 (34-104) Units/L Albumin 4.2 (3.5-5.7) g/dL - ABG Interpretation ABG results: PT/INR, D-dimer PT 11.7 Seconds (9.4-12.1) 04/24/18 06:33 Consult Discharge Plan - Plan Instructions: Back Pain (GEN) (2) Back pain Qualifiers: Back pain location: low back pain Chronicity: unspecified Back pain laterality: midline Sciatica presence: without sciatica Qualified Code(s): M54.5 - Low back pain (3) CAD (coronary artery disease) Qualifiers: Coronary Disease-Associated Artery/Lesion type: [place] artery [place] vs. transplanted heart: [place] heart Associated angina: with unstable angina Qualified Code(s): I25.110 - Atherosclerotic heart disease of [place] coronary artery with unstable angina pectoris (4) HTN (hypertension) Qualifiers: Hypertension type: essential hypertension Qualified Code(s): I10 - Essential (primary) hypertension (5) Hyperlipidemia Qualifiers: Hyperlipidemia type: pure hypercholesterolemia Qualified Code(s): E78.00 - Pure hypercholesterolemia, unspecified; E78.0 - Pure hypercholesterolemia
[2018-04-24] MEDS: *HR* OxyCODONE Immed Rel 5 MG TABLET PO SCH ×3 (11:54→20:38)
--- NOTE | 2018-04-24 15:23 | Neurology - Consult Note ---
Date of Encounter: 04/24/18 Time of Encounter: 15:18 Assessment and Plan (1) Numbness and tingling of right face Current Visit: Yes Status: Acute In this juncture patient has symptoms of numbness of the right side of the face , as well as weakness of the right upper and right lower extremity. I cannot be certain whether not this is something that is truly organic or whether not the weakness is due to give way. In any regard she has had several tests done in recent times that do not feel we need to repeat. I am however in favor of repeating the MRI just to rule out evidence of an acute infarct. If there is evidence of an acute infarct, even so I am not certain that there will be much else to offer from a medication perspective she is already on Plavix and aspirin. Anticoagulation is not indicated in this case. With regard to the back pain, his is not in acute neurosurgical emergency. She has no evidence of cauda equina or conus medullaris syndrome. In my opinion this is strictly a pain management case. She has had previous surgeries on her back which have not been successful. History of Present Illness HPI: The chart was reviewed, the patient was seen and examined. Ms. Moreno is a 67 year old female seen at the request of the hospitalist group secondary to TIA like symptoms. Apparently she awakened this morning with increased back pain. She has a known history of severe degenerative spine disease which is worse at the L5-S1 level. She has had multiple spine surgeries. Apparently in the wake of her severe back pain she complained of some numbness on the corner of the right lip and complains of right sided weakness. She is actually had several recent tests to workup previous strokelike symptoms. Carotid Doppler study was completed on March 13 which revealed minimal bilateral plaquing, echocardiogram completed on April 05 was normal. MRA scan of the brain completed this past November [address]. [address] scan of the lumbar spine reveals a stable degenerative changes which are worse at L5 and S1. CT scan of the head completed this admission was negative. MRI scan of the head is yet pending. She informs me that she has been on aspirin and Plavix. She still feels that she has some residual numbness on the right side of the face. Past Med Surg Social Fam HX - Past Medical History Medical history: coronary artery disease, GERD, hyperlipidemia, hypertension, myocardial infarction, renal disease, TIA, other Additional medical history: On home o2 Psychiatric history: anxiety, depression, panic disorder, other - Past Surgical History Surgical History: angioplasty/stent, cholecystectomy, coronary bypass (CABG), hysterectomy, knee replacement, other Additional surgical history: right shoulder replacement, right knee replacement twice left knee one replacement - Social History Smoking Status: Never smoker Smokeless Tobacco Status: No Alcohol use: none Drug use: none - Family History Mother Living Status: Hx Family Cardiac Disorders: Yes Hx Family Cancer: Yes (breast and colon) Father Adopted: No Family Member Ethnicity: Non- Living Status: Hx Family Cardiac Disorders: Yes Hx Family Respiratory Disorders: No Hx Family Cancer: No Hx Family GI Disorders: No Hx Family Endocrine Disorder: No Hx Family Neuromuscular Disorders: No Hx Family Neurologic Disorders: Yes (CVA) Hx Family HEENT Disorders: No Hx Family Autoimmune Disorders: No Medications and Allergies Amlodipine [Norvasc] 5 mg PO DAILY 05/19/15 [History] Clopidogrel [Plavix] 75 mg PO QAM 05/19/15 [History] Escitalopram [Lexapro] 20 mg PO QAM 05/19/15 [History] Levothyroxine [Synthroid] 50 mcg PO QAM 05/19/15 [History] Fenofibrate [Lofibra] 160 mg PO DAILY 02/02/16 [History] Furosemide [Lasix] 40 mg PO DAILY 02/02/16 [History] Lisinopril [Zestril] 40 mg PO DAILY 02/02/16 [History] Omeprazole [PriLOSEC] 20 mg PO DAILY 02/02/16 [History] Potassium Chloride 10 meq PO DAILY 02/02/16 [History] clonazePAM [Klonopin] 1 mg PO TID 02/02/16 [History] Atorvastatin [Lipitor] 80 mg PO HS 06/13/16 [History] Metoprolol [Lopressor] 100 mg PO DAILY 08/09/16 [History] Ranolazine [Ranexa] 1,000 mg PO BID 08/09/16 [History] Nitroglycerin [Nitrolingual] 1 spr SL Q5M PRN 12/12/17 [History] OxyCODONE/APAP 7.5/325 [Percocet 7.5/325 MG] 1 - 2 tab PO Q6HR PRN 12/12/17 [ History] 3 Allergy/AdvReac Type Severity Reaction Status Date / Time sumatriptan [From Imitrex] Allergy Severe Unconscious Verified 06/28/17 13:36 Penicillins Allergy Mild Hives Verified 06/28/17 13:36 morphine AdvReac Intermediate Insomnia Verified 06/28/17 13:36 tramadol AdvReac Intermediate Nausea Verified 06/28/17 13:36 ibuprofen AdvReac Mild See Verified 06/28/17 13:36 Comments ketorolac [From Toradol] AdvReac Mild Nausea Verified 06/28/17 13:36 All Systems: The remainder of the systems were reviewed and are negative Review of Systems: The balance of the systems review is negative. Physical Examination - Vital Signs Vital Signs: Initial Vital Signs Temp Pulse Resp BP Pulse Ox 98.4 F 95 18 124/78 95 04/23/18 21:04 04/23/18 21:04 04/23/18 21:04 04/23/18 21:04 04/23/18 21:04 - Neurologic Motor examination - right side: 4/5: deltoids, biceps, education general manager, hip flexors, tibialis Anterior, quadriceps, plantarflexion, 5/5: triceps Motor examination - left side: 5/5: deltoids, biceps, triceps, hip flexors, education general manager , quadriceps, tibialis Anterior, plantarflexion Detailed sensory examination: intact Reflexes: Biceps: 2+, Triceps: 2+, Brachioradialis: 2+, Patella: 2+, Achilles: 1 + Mental Status Examination: awake, alert, oriented to person, oriented to place, oriented to time, follows commands appropriately, answers questions appropriately, no agnosia, no aphasia, no aproxia Cranial nerve examination: PERRL, EOMI, visual vargas intact, no facial asymmetry is present, no dysarthria, hearing is intact symmetrically, tongue protrudes midline Cranial Nerve Exam: facial hypesthesia: Right Cerebellar examination: no dysmetria, performs finger to nose and heel to rodriguez symmetrically without ataxia, no truncal ataxia, no difficulty with rapid alternating movements Results - Laboratory Findings CBC and BMP: 04/24/18 09:39 04/24/18 06:33 Abnormal lab findings: Abnormal lab results Est GFR (Non-Af Amer) 55 (> 60) L 04/24/18 06:33 Glucose 239 mg/dL (70-105) H 04/24/18 06:33 POC Glucose 188 mg/dL (70-99) H 04/24/18 04:03 ALT 64 Units/L (7-52) H 04/24/18 06:33 Globulin 2.3 g/dL (2.4-3.5) L 04/24/18 06:33 Triglycerides 155 mg/dL (< 150) H 04/24/18 06:33 Cholesterol 213 mg/dL (< 200) H 04/24/18 06:33 LDL Cholesterol, Calc 145 mg/dL (0-99) H 04/24/18 06:33 VLDL Cholesterol, Calc 31 mg/dL (< 31) H 04/24/18 06:33 HDL Cholesterol 37 mg/dL (40-59) L 04/24/18 06:33 Cholesterol/HDL Ratio 5.8 (0-4.9) H 04/24/18 06:33 Consult Discharge Plan - Plan Instructions: Back Pain (GEN) Referrals: Giselle Bradford [Primary Care Provider] -
[2018-04-25] MEDS: *HR* OxyCODONE Immed Rel 5 MG TABLET PO SCH (02:06)
[2018-04-25] MEDS: *HR* OxyCODONE Immed Rel 5 MG TABLET PO PRN ×2 (02:12→06:25)
[2018-04-25 06:02] LABS: Basophils % 0.4 %; Eosinophils % 0.4 %; Hematocrit 36.2 % (35.3-44.9); Hemoglobin 11.8 g/dL (11.5-15.4); Immature Granulocytes % 0.8 % (0-4); Lymphocytes # 1.9 K/mcL (0.6-4.6); Lymphocytes % 24.4 %; Mean Corpuscular HGB Conc 32.6 g/dL (31.6-35.5); Mean Corpuscular Hemoglobin 30.3 pg (28.0-33.3); Mean Corpuscular Volume 92.8 fL (83.0-100.0); Mean Platelet Volume 11.1 fL (9.4-12.4); Monocytes % 12.6 %; Neutrophils # 4.8 K/mcL (1.6-8.9); Platelet Count 310 K/mcL (140-400); Segmented Neutrophils % 61.4 %
[2018-04-25 06:25] LABS: Calcium 9.3 mg/dL (8.6-10.3)
[2018-04-25] MEDS: clonazePAM 1 MG TABLET PO SCH ×3 (10:12→21:12)
[2018-04-25] MEDS: Fenofibrate 54 MG TABLET PO SCH (10:12)
[2018-04-25] MEDS: Metoprolol 100 MG TABLET PO SCH (10:13)
[2018-04-25] MEDS: Furosemide 40 MG TABLET PO SCH (10:13)
[2018-04-25] MEDS: Ranolazine 500 MG TAB.ER.12H PO SCH ×2 (10:14→21:06)
[2018-04-25] MEDS: Lisinopril 20 MG TABLET PO SCH (10:14)
[2018-04-25] MEDS: amLODIPine 5 MG TABLET PO SCH (10:14)
[2018-04-25] MEDS ORDERED: 0.9 % Sodium Chloride 500 ML IVC ONE ×2 (10:16→14:54)
[2018-04-25] MEDS ORDERED: 0.9 % Sodium Chloride 500 ML ONE (10:20)
--- NOTE | 2018-04-25 15:56 | Internal Med Progress Note ---
Hospitalist Progress Note - Encounter Date of Encounter: 04/25/18 Time of Encounter: 15:51 - Subjective Interval History: Seen and examined at bedside, no acute changes overnight. Reporting that she continues to have some numbness and tingling of right side of face, reports that right upper and lower extremity weakness has resolved. She is also continuing to report back pain which is chronic. - Exam Vitals: Temp Pulse Resp BP Pulse Ox 98.2 F 61 16 91/50 93 04/25/18 11:43 04/25/18 11:43 04/25/18 11:43 04/25/18 11:43 04/25/18 11:43 Exam: PHYSICAL EXAMINATION: GENERAL: The patient is an obese female in no apparent distress, she is alert and oriented x3. HEENT: Head is normocephalic and atraumatic. Extraocular muscles are intact. Pupils are equal, round, and reactive to light and accommodation. NECK: Supple. No carotid bruits. No lymphadenopathy or thyromegaly. LUNGS: Clear to auscultation. HEART: Regular rate and rhythm, S1, S2 without murmur. ABDOMEN: Soft, nontender, and nondistended. Positive bowel sounds. No hepatosplenomegaly was noted. EXTREMITIES: Without any cyanosis, clubbing, rash, lesions or edema. NEUROLOGIC: Cranial nerves II through XII are grossly intact SKIN: No ulceration or induration present. - Assessment and Plan (1) TIA (transient ischemic attack) Current Visit: Yes Status: Acute Assessment and Plan: admitted for TIA Presented with right face numbness/tingling and facial droop as well as right upper and lower extremity weakness She was found to have slight right-sided pronator drift and slightly decreased muscle strength on the right in upper and lower extremities However, this may be secondary to patient's back pain and confounding the examination. She has had a recent TIA workup However, repeat MRI obtained and found to show no acute findings Neurology seeing in consultation throughout stay has now signed off, per se recommendations. Per neurology do not feel there is any recommendations for additional workup; cont with ASA plavix and high dose statin echo 04/05/2018 Impressions: LVEF 60%. Mild left ventricular diastolic dysfunction. Normal right ventricular structure and function. Mild mitral regurgitation. Mild tricuspid regurgitation. No pulmonary hypertension. carotid 03/13/2018 The bilateral carotid arteries have minimal plaque throughout. Holter monitor 03/30/18 which showed underlying sinus rhythm with infrequent ectopy. (2) CAD (coronary artery disease) Current Visit: No Status: Chronic Assessment and Plan: History Recent TTE shows EF of 60% with mild left ventricular diastolic dysfunction. Denies any chest pain cont with ASA statin BB MELVINA Ranexa nitroglycerin as needed (3) HTN (hypertension) Current Visit: No Status: Chronic Assessment and Plan: Per history, currently hypotensive Holding anti-HTN medications, consider resuming in the morning (4) Hyperlipidemia Current Visit: No Status: Chronic Assessment and Plan: ContinueLipitor (5) Back pain Current Visit: Yes Status: Acute Assessment and Plan: Acute on chronic back pain. SHe has had multiple back surgeries T-spine shows moderate spinal canal stenosis at T9-10, moderate spinal canal stenosis at T12-L1, mild spinal canal stenosis at T7-8 L spine shows postsurgical change from posterior fusion L3-L4, degenerative changes contributed to mild to moderate spinal canal stenosis at L2 1-L2 with mild stenosis at L4-L5, there is moderate spinal canal stenosis at L5-S1, degenerative changes contributed to multilevel neural foraminal narrowing Continue medications for pain control, continue tramadol and muscle relaxer as well as lidocaine patch Advised to follow up with Pain management as outpatient - we will consult as needed (6) Hypotension Current Visit: Yes Status: Acute Assessment and Plan: Hypertensive episodes throughout the day, etiology unclear Has history of hypertension Does not appear to be toxic or septic remains afebrile, sinus rhythm no leukocytosis noted IVF bolus 1 L Blood pressure improving likely secondary to hypovolemia Continue to closely monitor and hold BP medications at this time Consider restarting in the morning DVT Prophylaxis: EPCD - Time Spent with Patient Total time spent is greater than 50% in coordination of care (as documented) at patient's floor/unit and/or counseling patient: less than 15 minutes Plan of Care Discussed with: patient Internal Medicine: Result - Labs CBC & Chem 7: 04/25/18 05:41 04/25/18 05:41 Labs: Short CBC 04/25/18 Range/Units 05:41 WBC 7.9 (4.3-11.1) K/mcL Hgb 11.8 D (11.5-15.4) g/dL Hct 36.2 (35.3-44.9) % Plt Count 310 (140-400) K/mcL Neutrophils # 4.8 (1.6-8.9) K/mcL BMP 04/25/18 05:41 Sodium 140 Potassium 4.0 Chloride 102 Carbon Dioxide 31 H BUN 22 Creatinine 1.28 H Glucose 160 H Calcium 9.3 - ABG Interpretation ABG results: PT/INR, D-dimer PT 11.7 Seconds (9.4-12.1) 04/24/18 06:33 - Impressions Impressions Brain MRI 04/24/18 06:01 IMPRESSION: 1. No acute intracranial abnormality. No acute infarct. 2. Mild global parenchymal volume loss with minimal chronic microvascular ischemic change. D/ / Sumit Martinez MD / Sumit Martinez MD Interpreting Provider: Sumit Martinez MD Lumbar Spine MRI 04/24/18 06:02 IMPRESSION: 1. Postsurgical change from posterior fusion L3-L4. 2. Degenerative changes contribute to [id number] spinal canal stenosis at L1-L2 with mild stenosis at L4-L5. There is moderate spinal canal stenosis at L5-S1. 3. Degenerative changes contribute to multilevel neural foraminal narrowing as above. 4. Levoscoliosis with perhaps minimal grade 1 anterolisthesis at L4-L5. D/ / Sumit Martinez MD / Sumit Martinez MD Interpreting Provider: Sumit Martinez MD Thoracic Spine MRI 04/24/18 06:02 IMPRESSION: 1. Moderate spinal canal stenosis at T9-10 secondary to a focal 3 mm central disc protrusion. 2. Moderate spinal canal stenosis at T12-L1 secondary to a central disc extrusion demonstrating superior migration. 3. Mild spinal canal stenosis at T7-8 secondary to a focal 2 mm left paracentral disc protrusion. D/ / 04/24/2018 18:54:56 Moris Mckeon MD / Rachel Tesfaye Interpreting Provider: Moris Mckeon MD Consult Discharge Plan - Plan Instructions: Back Pain (GEN) Referrals: Giselle Bradford [Primary Care Provider] - (2) CAD (coronary artery disease) Qualifiers: Coronary Disease-Associated Artery/Lesion type: [place] artery [place] vs. transplanted heart: [place] heart Associated angina: with unstable angina Qualified Code(s): I25.110 - Atherosclerotic heart disease of [place] coronary artery with unstable angina pectoris (3) HTN (hypertension) Qualifiers: Hypertension type: essential hypertension Qualified Code(s): I10 - Essential (primary) hypertension (4) Hyperlipidemia Qualifiers: Hyperlipidemia type: pure hypercholesterolemia Qualified Code(s): E78.00 - Pure hypercholesterolemia, unspecified; E78.0 - Pure hypercholesterolemia (5) Back pain Qualifiers: Back pain location: low back pain Chronicity: unspecified Back pain laterality: midline Sciatica presence: without sciatica Qualified Code(s): M54.5 - Low back pain (6) Hypotension Qualifiers: Hypotension type: unspecified hypotension type Qualified Code(s): I95.9 - Hypotension, unspecified
--- NOTE | 2018-04-25 17:56 | Neurology Progress Note ---
Date of Encounter: 04/25/18 Time of Encounter: 17:53 Assessment and Plan (1) Numbness and tingling of right face Current Visit: Yes Status: Acute No evidence of an acute cerebral infarct or any other neurologic process to corroborate the right facial numbness. I suspect this may have been due to anxiety related factors. I would simply recommend maintaining her current antiplatelet regimen and management of her stroke risk factors. The back pain however is likely due to a combination of arthritic degenerative processes along with nerve root impingement. However I see no evidence of a conus medullaris and cauda equina syndrome. She is also had previous surgeries and is not interested in another surgical assessment. I would therefore recommend a referral to pain management. I will reevaluate her at your request. Subjective Interval history: Chart was reviewed, the patient was seen and examined. Patient now complaining of nausea. I did review the MRI scan of the brain. The MRI revealed no evidence of an acute infarct to corroborate her acute facial numbness and facial droop. MRI of the thoracic spine revealed moderate stenosis at 2 levels due to bulging disks. And MRI of the lumbar spine revealed moderate to severe degenerative changes at the L5-S1 level. She denies any new neurologic symptoms. She continues to complain of back pain. Objective - Constitutional Vitals: Temp Pulse Resp BP Pulse Ox 98.1 F 56 17 102/63 98 04/25/18 16:31 04/25/18 16:31 04/25/18 16:31 04/25/18 16:31 04/25/18 16:31 - Neurological Exam Motor examination - right side: 4/5: deltoids, biceps, food services coordinator, hip flexors, tibialis Anterior, quadriceps, 5/5: triceps, plantarflexion Motor examination - left side: 5/5: deltoids, biceps, triceps, hip flexors, food services coordinator , quadriceps, tibialis Anterior, plantarflexion Sensation intact: Present: intact Mental Status Examination: Present: awake, alert, oriented to person, oriented to place, oriented to time, follows commands appropriately, answers questions appropriately, no agnosia, no aphasia, no aproxia Cranial nerve examination: Present: PERRL, EOMI, visual vargas intact, no facial asymmetry is present, no dysarthria, hearing is intact symmetrically, tongue protrudes midline Cranial Nerve Exam: facial hypesthesia: Right Cerebellar examination: Present: no dysmetria, performs finger to nose and heel to rodriguez symmetrically without ataxia, no truncal ataxia, no difficulty with rapid alternating movements Results - Laboratory Findings CBC and BMP: 04/25/18 05:41 04/25/18 05:41 Abnormal lab findings: Abnormal lab results Carbon Dioxide 31 mEq/L (23-29) H 04/25/18 05:41 Creatinine 1.28 mg/dL (0.60-1.20) H 04/25/18 05:41 Est GFR ( Amer) 51 (> 60) L 04/25/18 05:41 Est GFR (Non-Af Amer) 42 (> 60) L 04/25/18 05:41 Glucose 160 mg/dL (70-105) H 04/25/18 05:41 POC Glucose 139 mg/dL (70-99) H 04/25/18 06:41 ALT 64 Units/L (7-52) H 04/24/18 06:33 Globulin 2.3 g/dL (2.4-3.5) L 04/24/18 06:33 Triglycerides 155 mg/dL (< 150) H 04/24/18 06:33 Cholesterol 213 mg/dL (< 200) H 04/24/18 06:33 LDL Cholesterol, Calc 145 mg/dL (0-99) H 04/24/18 06:33 VLDL Cholesterol, Calc 31 mg/dL (< 31) H 04/24/18 06:33 HDL Cholesterol 37 mg/dL (40-59) L 04/24/18 06:33 Cholesterol/HDL Ratio 5.8 (0-4.9) H 04/24/18 06:33 TSH 5.961 mcIU/mL (0.340-5.600) H 04/25/18 16:04 Consult Discharge Plan - Plan Instructions: Back Pain (GEN) Referrals: Giselle Bradford [Primary Care Provider] -
[2018-04-25 18:01] LABS: Folate 5.6 ng/mL (3.0-16.0)
[2018-04-25] MEDS ORDERED: Ondansetron ODT 4 MG TAB.RAPDIS SL ONE (18:39)
[2018-04-26] MEDS: clonazePAM 1 MG TABLET PO SCH ×3 (08:56→20:24)
[2018-04-26] MEDS: Ranolazine 500 MG TAB.ER.12H PO SCH ×2 (08:57→20:24)
[2018-04-26] MEDS: Fenofibrate 54 MG TABLET PO SCH (08:57)
[2018-04-26] MEDS: *HR* OxyCODONE Immed Rel 5 MG TABLET PO PRN ×4 (09:20→22:57)
[2018-04-26 14:39] LABS: Bilirubin,Urine Negative (Negative); Blood,Urine Negative (Negative); Clarity,Urine Clear (Clear); Color,Urine Yellow (Yellow); Glucose,Urine (UA) Normal (Normal); Ketones,Urine Negative (Negative); Leukocyte Esterase,Urine Negative (Negative); Nitrite,Urine Negative (Negative); Protein,Urine Negative (Neg-Trace); Specific Gravity,Urine 1.018 (1.010-1.025); Urobilinogen,Urine Normal (Normal)
--- NOTE | 2018-04-26 15:55 | Internal Med Progress Note ---
Hospitalist Progress Note - Encounter Date of Encounter: 04/26/18 Time of Encounter: 15:52 - Subjective Interval History: Seen and examined at bedside, no acute changes overnight. Reporting that she continues to have some numbness and tingling of right side of face, reports that right upper and lower extremity weakness has resolved. She is also continuing to report back pain which is chronic; findings of arthritic degenerative process along with nerve root impingement.. - Exam Vitals: Temp Pulse Resp BP Pulse Ox 98.3 F 67 18 113/67 97 04/26/18 11:40 04/26/18 11:40 04/26/18 11:40 04/26/18 11:40 04/26/18 11:40 Exam: PHYSICAL EXAMINATION: GENERAL: The patient is an elderly, obese female who is alert and oriented x3. HEENT: Head is normocephalic and atraumatic. Extraocular muscles are intact. Pupils are equal, round, and reactive to light and accommodation. NECK: Supple. No carotid bruits. No lymphadenopathy or thyromegaly. LUNGS: Clear to auscultation AP & L. HEART: Regular rate and rhythm, s1, s2, without murmur. ABDOMEN: Soft, nontender, and nondistended. Positive bowel sounds. No hepatosplenomegaly was noted. EXTREMITIES: Without any cyanosis, clubbing, rash, lesions or edema. NEUROLOGIC: Cranial nerves II through XII are grossly intact. - Assessment and Plan (1) TIA (transient ischemic attack) Current Visit: Yes Status: Acute Assessment and Plan: concerns for TIA on admission with right face numbness/tingling and facial droop as well as right upper and lower extremity weakness She was found to have slight right-sided pronator drift and slightly decreased muscle strength on the right in upper and lower extremities these symptoms have resolved repeat MRI without acute process neurology suspects s/sx r/t anxiety related factors given negative workup. Rec per neuro; continue antiplatelet regimen and modify risk factors neuro signed off 04/26 Persistent mild facial numbness, otherwise no return of TIA symptoms (2) CAD (coronary artery disease) Current Visit: No Status: Chronic Assessment and Plan: per hx; prior MN and CABG no chest pain continue tricor, lipitor, plavix, ranexa Antihypertensives on hold for now with hypotension, BP improving, resume as appropriate (3) HTN (hypertension) Current Visit: No Status: Chronic Assessment and Plan: per hx, anti-htn meds on hold d/t hypotension BP improving continue to monitor and resume as appropriate (4) Hyperlipidemia Current Visit: No Status: Chronic (5) Back pain Current Visit: Yes Status: Acute Assessment and Plan: Acute on chronic back pain T-spine shows moderate spinal canal stenosis at T9-10, moderate spinal canal stenosis at T12-L1, mild spinal canal stenosis at T7-8 L spine shows postsurgical change from posterior fusion L3-L4, degenerative changes contributed to mild to moderate spinal canal stenosis at L2 1-L2 with mild stenosis at L4-L5, there is moderate spinal canal stenosis at L5-S1, degenerative changes contributed to multilevel neural foraminal narrowing Patient reports that she has a previous spinal surgeries in the past and does not wish for another surgical assessment at this time. Continue current pain medication regimen as she does endorse that she is currently comfortable. At discharge the patient would benefit from referral to pain management. web services architect to assist with discharge planning. PT/OT suggest home health with physical therapy. Patient lives at home alone with her who has Parkinson's and is unable to assist in her care. - Time Spent with Patient Total time spent is greater than 50% in coordination of care (as documented) at patient's floor/unit and/or counseling patient: less than 15 minutes Plan of Care Discussed with: patient Internal Medicine: Result - Labs CBC & Chem 7: 04/25/18 05:41 04/25/18 05:41 Labs: Urine 04/26/18 Range/Units 13:40 Urine Color Yellow (Yellow) Urine Clarity Clear (Clear) Urine pH 6.0 (5.0-8.0) pH Units Ur Specific [place] 1.018 (1.010-1.025) Urine Protein Negative (Neg-Trace) mg/dL Urine Glucose (UA) Normal (Normal) mg/dL - ABG Interpretation ABG results: PT/INR, D-dimer PT 11.7 Seconds (9.4-12.1) 04/24/18 06:33 Consult Discharge Plan - Plan Instructions: Back Pain (GEN) Referrals: Giselle Bradford [Primary Care Provider] - (2) CAD (coronary artery disease) Qualifiers: Coronary Disease-Associated Artery/Lesion type: [place] artery [place] vs. transplanted heart: [place] heart Associated angina: with unstable angina Qualified Code(s): I25.110 - Atherosclerotic heart disease of [place] coronary artery with unstable angina pectoris (3) HTN (hypertension) Qualifiers: Hypertension type: essential hypertension Qualified Code(s): I10 - Essential (primary) hypertension (4) Hyperlipidemia Qualifiers: Hyperlipidemia type: pure hypercholesterolemia Qualified Code(s): E78.00 - Pure hypercholesterolemia, unspecified; E78.0 - Pure hypercholesterolemia (5) Back pain Qualifiers: Back pain location: low back pain Chronicity: unspecified Back pain laterality: midline Sciatica presence: without sciatica Qualified Code(s): M54.5 - Low back pain
[2018-04-26 16:36] LABS: BUN/Creatinine Ratio 20 (6-26); Blood Urea Nitrogen 21 mg/dL (8-23); Calcium 9.3 mg/dL (8.6-10.3); Carbon Dioxide 31 mEq/L (23-29); Chloride 102 mEq/L (98-107); Glucose 126 mg/dL (70-105); Osmolality,Calculated 293 (280-300); Sodium 139 mEq/L (136-145); eGFR For Non-African Americans 52 (> 60)
[2018-04-26] MEDS ORDERED: Ondansetron 4 MG/2 ML VIAL IVP PRN (17:29)
--- NOTE | 2018-04-26 22:45 | Electrocardiograph Report ---
[place] [id number] Test Date: 2018-04-23 Pat Name: Iveth Moreno Department: [id number] Room: 3B Gender: F Cardiology Coordinator: : 1950 Requested By: Damian Bowling Order Number: [id number] Reading MD: Aurora Nagel Measurements Intervals [place] Rate: 83 P: 57 ME: 155 QRS: 16 QRSD: 92 T: 49 QT: 410 QTc: 482 Interpretive Statements Sinus rhythm Borderline T wave abnormalities Electronically Signed On 04-26-2018 22:43:50 EDT by Aurora Nagel
[2018-04-27] MEDS: *HR* OxyCODONE Immed Rel 5 MG TABLET PO PRN ×3 (03:13→13:12)
[2018-04-27 04:51] LABS: Basophils % 0.4 %; Eosinophils # 0.2 K/mcL (0.0-0.6); Eosinophils % 2.7 %; Hematocrit 37.6 % (35.3-44.9); Hemoglobin 12.5 g/dL (11.5-15.4); Immature Granulocytes % 0.6 % (0-4); Lymphocytes # 1.7 K/mcL (0.6-4.6); Mean Corpuscular HGB Conc 33.2 g/dL (31.6-35.5); Mean Corpuscular Volume 93.3 fL (83.0-100.0); Mean Platelet Volume 11.5 fL (9.4-12.4); Monocytes # 0.8 K/mcL (0.0-1.3); Monocytes % 11.1 %; Neutrophils # 4.3 K/mcL (1.6-8.9); Platelet Count 260 K/mcL (140-400); Red Blood Count 4.03 M/mcL (3.82-4.97); Red Cell Distribution Width 12.6 % (11.5-14.5); Segmented Neutrophils % 61.2 %
[2018-04-27] MEDS: clonazePAM 1 MG TABLET PO SCH ×2 (08:38→14:28)
[2018-04-27] MEDS: Ranolazine 500 MG TAB.ER.12H PO SCH (08:39)
[2018-04-27] MEDS: Fenofibrate 54 MG TABLET PO SCH (08:40)
--- NOTE | 2018-04-27 11:32 | Discharge Summary ---
- NOTES TO OUTPATIENT PROVIDER Notes to Outpatient Provider: please ensure f/u with pain management Orders not resulted at time of discharge: Pending orders 04/28/18 04:00 Basic Metabolic Panel AM 0400 Complete Blood Count [HEME] AM 0400 04/29/18 04:00 Basic Metabolic Panel AM 0400 Complete Blood Count [HEME] AM 0400 Date of Encounter: 04/27/18 Time of Encounter: 11:32 - Discharge Diagnosis (1) TIA (transient ischemic attack) Priority: Primary Status: Ruled-out (2) CAD (coronary artery disease) Priority: Secondary Status: Chronic Qualifiers: Coronary Disease-Associated Artery/Lesion type: [place] artery [place] vs. transplanted heart: [place] heart Associated angina: with unstable angina Qualified Code(s): I25.110 - Atherosclerotic heart disease of [place] coronary artery with unstable angina pectoris (3) HTN (hypertension) Priority: Secondary Status: Chronic Qualifiers: Hypertension type: essential hypertension Qualified Code(s): I10 - Essential (primary) hypertension (4) Hyperlipidemia Priority: Secondary Status: Chronic Qualifiers: Hyperlipidemia type: pure hypercholesterolemia Qualified Code(s): E78.00 - Pure hypercholesterolemia, unspecified; E78.0 - Pure hypercholesterolemia (5) Back pain Priority: Secondary Status: Acute Qualifiers: Back pain location: low back pain Chronicity: unspecified Back pain laterality: midline Sciatica presence: without sciatica Qualified Code(s): M54.5 - Low back pain Hospital course: Ms. Moreno is a 67 year old female who presented with concerns for TIA and worsening back pain with a chronic back pain hx. Patient presented with right- sided facial droop, and right facial paresthesias. CT imaging of head performed which shows no acute intracranial abnormality. Patient currently taking aspirin and Plavix. Symptoms subsequently resolved shortly after arrival. However, patient continued to have back pain with occasional tingling in the right thigh. She denies any loss or bowel or bladder function. Significant history for degenerative arthritic process throughout her back along with nerve root impingement. Patient has had multiple back surgeries in the past. MRI of thoracic spine revealed moderate stenosis at 2 levels due to bulging disks. MRI of the lumbar spine revealed moderate to severe degenerative changes at the L5-S1 level. Throughout the stay she has not had any new neurological symptoms and her exam is remained unremarkable. She has been weak due to back pain which is a patient PT/OT. Patient is progressing back to baseline. She will discharge home with [facility] services for PT and OT to continue to build strength and for balance training. No studies pending for follow-up. Discharge discussed with: patient, nurse, air quality consultant - Time Spent with Patient Total time spent providing and/or coordinating discharge services: Less than 30 minutes - Discharge Medications Home Medications: Amlodipine [Norvasc] 5 mg PO DAILY 05/19/15 [History] Clopidogrel [Plavix] 75 mg PO QAM 05/19/15 [History] Escitalopram [Lexapro] 20 mg PO QAM 05/19/15 [History] Levothyroxine [Synthroid] 50 mcg PO QAM 05/19/15 [History] Fenofibrate [Lofibra] 160 mg PO DAILY 02/02/16 [History] Furosemide [Lasix] 40 mg PO DAILY 02/02/16 [History] Lisinopril [Zestril] 40 mg PO DAILY 02/02/16 [History] Omeprazole [PriLOSEC] 20 mg PO DAILY 02/02/16 [History] Potassium Chloride 10 meq PO DAILY 02/02/16 [History] clonazePAM [Klonopin] 1 mg PO TID 02/02/16 [History] Atorvastatin [Lipitor] 80 mg PO HS 06/13/16 [History] Metoprolol [Lopressor] 100 mg PO DAILY 08/09/16 [History] Ranolazine [Ranexa] 1,000 mg PO BID 08/09/16 [History] Nitroglycerin [Nitrolingual] 1 spr SL Q5M PRN 12/12/17 [History] OxyCODONE/APAP 7.5/325 [Percocet 7.5/325 MG] 1 - 2 tab PO Q6HR PRN 12/12/17 [ History] Doxepin [Sinequan] 10 mg PO HS 04/24/18 [History] Allergies/Adverse Reactions: 3 Allergy/AdvReac Type Severity Reaction Status Date / Time sumatriptan [From Imitrex] Allergy Severe Unconscious Verified 06/28/17 13:36 Penicillins Allergy Mild Hives Verified 06/28/17 13:36 morphine AdvReac Intermediate Insomnia Verified 06/28/17 13:36 tramadol AdvReac Intermediate Nausea Verified 06/28/17 13:36 ibuprofen AdvReac Mild See Verified 06/28/17 13:36 Comments ketorolac [From Toradol] AdvReac Mild Nausea Verified 06/28/17 13:36 Date of admission: 04/24/18 01:08 Primary care physician: Giselle Bradford Consults: 04/24/18 03:45 Consult to Neurology [CONS] Routine Consulting Provider: Neurology [facility] Reason for Consult: Possible TIA Call Completed: No 04/25/18 16:00 Consult to Occupational Therapy [CONS] Routine Comment: Evaluate, develop and implement POC Reason for Consult: Assessment functional capacity Does patient have active BEDREST order?: No Is patient medically & hemodynamically stable?: Yes Patient assessed for mobility or mobilized this visit?: No Consult to Physical Therapy [CONS] Routine Comment: Evaluate, develop and implement POC Reason for Consult: Assessment functional capacity Does patient have active BEDREST order?: No Is patient medically & hemodynamically stable?: Yes Patient assessed for mobility or mobilized this visit?: No 04/26/18 15:50 Consult to Fabric Lay Out Worker [CONS] Routine Reason for SW Consult: discharge planning; pt may benefit from home health and PT/OT Discharging clinician: Edgardo Bass Anticipated date of discharge: 04/27/18 - Constitutional Vitals: Temp Pulse Resp BP Pulse Ox 98.6 F 86 18 107/73 96 04/27/18 07:16 04/27/18 07:16 04/27/18 07:16 04/27/18 07:16 04/27/18 09:40 Exam: PHYSICAL EXAMINATION: GENERAL: The patient is an elderly, obese female who is alert and oriented x3. HEENT: Head is normocephalic and atraumatic. Extraocular muscles are intact. Pupils are equal, round, and reactive to light and accommodation. NECK: Supple. No carotid bruits. No lymphadenopathy or thyromegaly. LUNGS: Clear to auscultation AP & L. HEART: Regular rate and rhythm, s1, s2, without murmurs rubs or gallops. ABDOMEN: Soft, nontender, and nondistended. Positive bowel sounds. No hepatosplenomegaly was noted. EXTREMITIES: Without any cyanosis, clubbing, rash, lesions or edema. NEUROLOGIC: Cranial nerves II through XII are grossly intact. - Patient Status Disposition: Home Health Service Condition: Good Functional capacity at discharge: independent ambulation Overall status at discharge: patient is progressing back to baseline - Discharge Instructions Instructions: Chest Pain (DC), Back Pain (GEN) Follow Up With: Giselle Bradford [Primary Care Provider] - Hany Moore DO [Partnered Physician] - 05/26/18 8:40 am - Diet and Activity Activity: increase activity as tolerated, resume usual activities as tolerated Diet: diabetic diet, low fat, low cholesterol, low salt diet
[2018-04-27 11:50] VITALS: BP 104/55
--- NOTE | 2018-04-27 14:26 | Physician Discharge Referral ---
Home Health/Hosp Referral Info Transfer to: Home Health Attending Provider: Laura home health Provider in Charge Post Discharge: PCP - Diagnosis (1) TIA (transient ischemic attack) Priority: Primary Status: Ruled-out (2) CAD (coronary artery disease) Priority: Secondary Status: Chronic (3) HTN (hypertension) Priority: Secondary Status: Chronic (4) Hyperlipidemia Priority: Secondary Status: Chronic (5) Back pain Priority: Secondary Status: Acute - Respiratory Orders Smoking Cessation: Smoking cessation has been advised. For more information, call the [place] Tobacco Quit Line at 7-657-UDZQ-NOW. - Diet/Nutrition Diet/Nutrition Orders: Cardiac, No Concentrated Sweets - Activity Activity Orders: Ambulate (Per PT/OT) - Services Needed Following services are medically necessary services: Home Health Aide, Physical Therapy, Occupational Therapy - Transfer Medications Home Medications: Amlodipine [Norvasc] 5 mg PO DAILY 05/19/15 [History] Clopidogrel [Plavix] 75 mg PO QAM 05/19/15 [History] Escitalopram [Lexapro] 20 mg PO QAM 05/19/15 [History] Levothyroxine [Synthroid] 50 mcg PO QAM 05/19/15 [History] Fenofibrate [Lofibra] 160 mg PO DAILY 02/02/16 [History] Furosemide [Lasix] 40 mg PO DAILY 02/02/16 [History] Lisinopril [Zestril] 40 mg PO DAILY 02/02/16 [History] Omeprazole [PriLOSEC] 20 mg PO DAILY 02/02/16 [History] Potassium Chloride 10 meq PO DAILY 02/02/16 [History] clonazePAM [Klonopin] 1 mg PO TID 02/02/16 [History] Atorvastatin [Lipitor] 80 mg PO HS 06/13/16 [History] Metoprolol [Lopressor] 100 mg PO DAILY 08/09/16 [History] Ranolazine [Ranexa] 1,000 mg PO BID 08/09/16 [History] Nitroglycerin [Nitrolingual] 1 spr SL Q5M PRN 12/12/17 [History] OxyCODONE/APAP 7.5/325 [Percocet 7.5/325 MG] 1 - 2 tab PO Q6HR PRN 12/12/17 [ History] Doxepin [Sinequan] 10 mg PO HS 04/24/18 [History] Allergies/Adverse Reactions: 3 Allergy/AdvReac Type Severity Reaction Status Date / Time sumatriptan [From Imitrex] Allergy Severe Unconscious Verified 06/28/17 13:36 Penicillins Allergy Mild Hives Verified 06/28/17 13:36 morphine AdvReac Intermediate Insomnia Verified 06/28/17 13:36 tramadol AdvReac Intermediate Nausea Verified 06/28/17 13:36 ibuprofen AdvReac Mild See Verified 06/28/17 13:36 Comments ketorolac [From Toradol] AdvReac Mild Nausea Verified 06/28/17 13:36 Certification: Further, I certify that my clinical findings support that this patient is homebound (i.e. absences from home require considerable and taxing effort and are for medical reasons or jewish services or infrequently or short duration when for other reasons) because: Homebound Reason: Patient requires assistance of a person or device to safely leave home Attestation: My signature below is to certify that this patient is under my care and that I, or nurse practitioner, or a physician's pathology assistant working with me, has a face-to -face encounter with this patient.
== END 2018-04-27 15:56 | disposition home health service (06) ==
LOC: 3BNU 20:56 → EMEROOARM 20:56 → 3BNU 04-24 01:30
PROVIDERS: ADMIT Internal Medicine; ATTEND Internal Medicine